=== PATIENT | male | born 1940 | race Caucasian/White ===

== ENCOUNTER → 2017-01-14 | Outpatient (CLI) | payer MEDICARE ==
--- NOTE | 2017-01-14 07:56 | CT ---
EXAMINATION TYPE: CT ankle RT wo con DATE OF EXAM: 01/14/2017 7:36 AM COMPARISON: NONE HISTORY: Right ankle pain with displaced fracture CT DLP: 235.[address] of the right ankle with reconstruction imaging. TECHNIQUE: Unenhanced CT of the right ankle was performed with bone and soft tissue window settings s ubmitted in the axial coronal and sagittal planes. FINDINGS: There is evidence of trimalleolar fracture. Medial malleolar component demonstrates displac ement of 3.8 mm. Mildly comminuted obliquely oriented lateral malleolar component is identified with displacement of approximately 2.8 mm. A comminuted displaced bony fragment measuring 3.8 mm is noted at the lateral aspect of the ankle mortise. There is mildly comminuted posterior malleolar fracture w ith displacement of 1 mm. Curvilinear ossific density is noted on sagittal image 25 of 43 at the ante rior talar dome. This may reflect additional avulsion fracture with site of origin indeterminate. The re is mild widening of the medial tibiotalar joint space measuring 5 mm. There is evidence of soft tissue edema. Plantar and dorsal calcaneal spur formation identified. No ad ditional fracture seen at this time. IMPRESSION: 1. Trimalleolar fractures as discussed. 2. Mild widening of the medial tibiotalar joint space.
== END | disposition home or self-care (01) ==
LOC: RADCTMAIN 07:12
PROVIDERS: ATTEND Orthopaedic Surgery
DX: S82.851A Displaced trimalleolar fracture of right lower leg, initial encounter for closed fracture (principal)

== ENCOUNTER 2017-01-19 13:28 | Day surgery (SDC) | payer MEDICARE ==
[2017-01-18 09:28] VITALS: BMI 29.6
[~2017-01-19 13:28] MED LIST: DEXAMETHASONE SOD PHOSPHATE 10 MG/ML 1 ML VIAL IV ONE; HYDROmorphone 1 MG/ML 1 ML SYRINGE IVP PRN; LACTATED RINGERS 1,000 ML IV SCH; LIDOCAINE 1% 20 ML VIAL (10MG/ML) FOR IV START INTRADERMA PRN; MIDAZOLAM 2 MG/2 ML VIAL IV PRN; ONDANSETRON 4 MG/2 ML VIAL IVP ONE; SCOPOLAMINE 1.5MG/72HR PATCH TRANSDERM ONE; ceFAZolin 2 GM in SODIUM CHLORIDE 0.9% 100 ML IVPB ONE
[2017-01-19] MEDS ORDERED: SUCCINYLCHOLINE CHLORIDE 100 MG/5 ML SYR IV ONE (14:50)
[2017-01-19] MEDS ORDERED: MIDAZOLAM 2 MG/2 ML VIAL ONE (14:50)
[2017-01-19] MEDS ORDERED: LIDOCAINE 1% INJ 10MG/ML (20 ML MDV) ONE (14:50)
[2017-01-19] MEDS ORDERED: PROPOFOL 10 MG/ML 20 ML VIAL IV ONE (14:50)
[2017-01-19] MEDS ORDERED: ROCURONIUM BROMIDE 10 MG/ML 10 ML VIAL IV ONE (14:50)
[2017-01-19] MEDS ORDERED: NEOSTIGMINE 1 MG/ML 10 ML VIAL ONE (14:50)
[2017-01-19] MEDS ORDERED: GLYCOPYRROLATE 0.2 MG/ML 2 ML VIAL ONE (14:50)
[2017-01-19] MEDS ORDERED: fentaNYL (PF) 50 MCG/ML 2 ML AMP ONE (14:50)
[2017-01-19] MEDS ORDERED: ceFAZolin 1,000 MG in SODIUM CHLORIDE 0.9% 1,000 ML IRRIGATION ONE (16:10)
[2017-01-19] MEDS ORDERED: LACTATED RINGERS 1,000 ML IV ONE ×2 (16:36)
--- NOTE | 2017-01-19 16:52 | FL ---
EXAMINATION TYPE: FL guidance operating room, XR ankle limited RT DATE OF EXAM: 01/19/2017 4:43 PM CLINICAL HISTORY: Right ankle trimalleolar fracture. TECHNIQUE: Fluoroscopy. Limited intraoperative views right ankle. COMPARISON: CT right ankle January 14, 2017. FINDINGS: Fluoroscopic guidance was provided during open reduction internal fixation procedure perfo rmed by Dr. Bolton. A total of 41 seconds of fluoroscopic time was utilized during the procedure a nd 8 spot intraoperative images are acquired. Saved intraoperative images show placement of fixating screws through medial malleolus or fracture. T here is lateral fixating plate with additional fixating screws through the lateral malleolus or fract ure. Satisfactory alignment is seen on intraoperative images provided. IMPRESSION: As Above.
[2017-01-19 17:16] VITALS: RESP 16; TEMP 97.6
[2017-01-19] MEDS ORDERED: HYDROcodone/APAP 5-325MG 1 EACH TAB PO PRN (17:20)
[2017-01-19] MEDS ORDERED: HYDROmorphone 1 MG/ML 1 ML SYRINGE IVP PRN (17:20)
[2017-01-19] MEDS ORDERED: ONDANSETRON 4 MG/2 ML VIAL IVP PRN (17:20)
[2017-01-19] MEDS ORDERED: ROPIVACAINE 5 MG/ML 30 ML VIAL MISCELLANE ONE (17:35)
--- NOTE | 2017-01-19 17:35 | P.OP ---
Date of Procedure: 01/19/17 Preoperative Diagnosis: Closed right trimalleolar ankle fracture Postoperative Diagnosis: Closed right trimalleolar ankle fracture Procedure(s) Performed: 1. Open reduction and internal fixation of right trimalleolar ankle fracture ( open reduction and internal fixation of lateral and medial malleolus fracture and nonoperative management of posterior malleolus fracture) 2. Manual application of joint stress by physician for radiography right ankle Anesthesia: GETA Surgeon: Oscar Bolton Estimated Blood Loss (ml): 30 IV fluids (ml): 850 Pathology: none sent Condition: stable Disposition: PACU Indications for Procedure: The patient is a very pleasant 76-year-old male who sustained an isolated injury to his right ankle 4 weeks ago while hiking in [place]. He was seen in the emergency department where closed reduction and splinting was performed. He followed up with an orthopedic surgeon in [place], but he and his decided they wanted to have surgical fixation back home in [place]. I saw the patient 3 weeks after his injury and repeat x-rays which showed a displaced trimalleolar ankle fracture. I recommended operative fixation. I obtained a computed tomography scan to assess the size of the posterior malleolus fracture. The patient was placed in a well-padded bulky Byrne type splint to help facilitate dissipation of swelling. The patient was seen a week later at which point there was wrinkling of the skin and I determined it safe to proceed with surgery. We discussed potential risks and complication of surgery including but not limited to risk of anesthesia, risk of superficial infection, risk of deep infection, risk of delayed wound healing, risk of wound necrosis, risk of fracture nonunion, risk of fracture malunion, risk of symptomatically hardware, risk of posterior medical arthritis, risk of displacement requiring surgery, risk of chronic pain, risk of chronic swelling, risk of damage to local sensory nerves resulting in temporary or permanent numbness, risk of need for hardware removal, risk of DVT, risk of PE, risk of postoperative medical complication, and possibly loss of life or limb. The patient and his understand these potential risks and complications of surgery. Description of Procedure: The patient was identified in preoperative holding and the correct right leg was marked with my initials. I reviewed the consent form with the patient and his and all their questions were answered. The patient was then brought back to the operating room. He was transferred onto the operating room table and a general anesthetic and preoperative antibiotics were administered. The patient was then positioned on the operating room table and all bony prominences well-padded. A bone foam ramp was placed under his right leg. A bone foam wedge was placed under his right buttock internally rotating the leg. A tourniquet was applied to the proximal aspect of the right thigh. A to starting surgery C-arm came in and a manual external rotation stress x-ray was taken with fluoroscopy. The right ankle showed significant widening of the medial clear space. I then took a mortise and lateral x-ray of the left ankle to use as a template for reduction showed a syndesmotic screw be needed. The patient's right leg was then prepped and draped in the standard sterile fashion. Prior to starting surgery timeout was performed identifying the correct patient, operative extremity, and procedure. The patient's leg was then elevated, exsanguinated with an Esmarch bandage, and the tourniquet was inflated to 250 mmHg. A longitudinal incision was marked out directly over the lateral aspect of the fibula centered on the fracture. Skin incision with a 15 blade scalpel and dissection was carried down carefully to the subcutaneous tissue lateral aspect the distal fibula. The fracture site was identified. There was a large amount of consolidating callus that had to be taken down. The fracture site was circumferentially exposed until it was easily reduced. Once the fracture site was debrided and ready to be reduced a a closed reduction was performed using longitudinal traction and rotation. Hfway-fs-vqtuc reduction clamps were used to hold the reduction in place. Clinically the posterior cortex of the distal fragment keyed in nicely to the proximal fragment. Clinically the fracture appeared to be reduced and nicely compressed with 2 dffcf-xa-iwkps reduction clamps. C-arm was brought in to verify the fracture was out to length and the medial clear space was reduced. A 2.7 mm lag screw was then placed from anterior to posterior across the fracture site. A 2.7 mm drill bit was used to create a gliding hole in the anterior cortex of the proximal fragment and a 2.0 mm drill bit was used to create a threaded hole in the posterior cortex the distal fragment. A fully threaded 2.7 mm screws placed generating excellent compression across the fracture. A one third tubular plate was then placed along the lateral aspect of the fibula. A 35 screws placed just proximal to the fracture site bring the plate down to the bone. I then placed a 3.5 screw in the most proximal hole of the plate. Attention was then turned distally and 2 fully threaded 3.5 mm cancellus screws were placed in the distal holes of the plate. I then placed a final screw in the second hole of the plate proximally. Attention was then turned to the medial malleolus. A longitudinal incision was made centered over the medial malleolus. Dissection was carried down carefully through subcutaneous tissue. The fracture site was identified and cleaned of consolidating hematoma. Once the fracture site was debrided a reduction was performed. A 2.5 mm drill bit was used to create a single unicortical hole in the proximal tibia. 1 funmilayo of a lzsum-md-qlbpw reduction clamp was placed and this drilled hole and the second funmilayo was placed on the tip of the medial malleolus. Reduction clamp was closed nicely reducing the medial malleolus fracture. A 0.0625 K wire was placed across the fracture fragment up into the tibia. A second 0.0625 K wire was placed anterior to the previously placed K wire. The K wire was withdrawn and a fully threaded 2.7 mm screw was placed down the track of the previously removed K wire. The retractor in second K wire removed and the fracture fragment was reduced. Due to the size of the medial malleolus anterior collicular fragment I was unable to place a second screw. At this point a manual external rotation stress x-ray was taken. There was no widening of the medial clear space or the syndesmosis. I elected not to place a syndesmotic screw due to no evidence of radiographic instability. Final mortise and lateral x-rays of the ankle were then taken. Both wounds were then copiously irrigated with sterile saline. The fascia over the distal fibula was closed with a running 2-0 Vicryl stitch. The deep subcu was reapproximated using 2-0 Vicryl. The skin was closed using 3-0 nylon Allgower modification of the Donati stitch. The fascia medially was closed with an interrupted 2-0 Vicryl stitch. The deep subcu was closed with interrupted 2-0 Vicryl. The skin was closed using 3-0 nylon Allgower modification of the Donati stitch. The tourniquet was let down for total tourniquet time of 70 minutes. Brown quarter-inch stretchy Steri-Strips were placed between the stitches. I verified that all instrument, sponge, and sharp counts were correct. A sterile dressing consisting of Betadine soaked Adaptic, 4 x 4 and web roll was applied. The drapes were then taken down and a very well -padded bulky Byrne type splint was placed. The patient was awoken from his anesthetic, transferred to the [facility] and brought to PACU having to the procedure well. Plan: The patient can discharge home tonight if he is comfortable. He is to remain strictly nonweightbearing on his right leg. If he does stay overnight he will need 2 additional doses of antibiotics and Lovenox 40 mg daily while in the hospital for DVT prophylaxis. He'll follow-up in the office in 2 weeks.
[2017-01-19 18:27] VITALS: BP 160/89; PULSE 83
== END 2017-01-19 19:08 | disposition home or self-care (01) ==
LOC: OR 13:28
PROVIDERS: ATTEND Orthopaedic Surgery
DX: S82.851A Displaced trimalleolar fracture of right lower leg, initial encounter for closed fracture (principal); I10 Essential (primary) hypertension; E78.5 Hyperlipidemia, unspecified; E03.9 Hypothyroidism, unspecified; H91.90 Unspecified hearing loss, unspecified ear; X58.XXXA Exposure to other specified factors, initial encounter; Y93.01 Activity, walking, marching and hiking; Z79.899 Other long term (current) drug therapy; Z85.46 Personal history of malignant neoplasm of prostate; Z82.49 Family history of ischemic heart disease and other diseases of the circulatory system; Z98.890 Other specified postprocedural states
CPT/HCPCS: 73600; 27822; C1713; J2250; J1100; J2710; J0690 ×2; J2405; J2001; J3010; J1170; J2795; J0330; J2704

== ENCOUNTER → 2018-05-04 | Outpatient (CLI) | payer MEDICARE ==
[2018-05-04 15:35] LABS: Blood Urea Nitrogen 15 mg/dL (9-20)
--- NOTE | 2018-05-04 21:01 | CT ---
EXAMINATION TYPE: CT pelvis wo/w con DATE OF EXAM: 05/04/2018 COMPARISON: None HISTORY: Interpelvic lymphoma. CT DLP: 1521 mGycm Automated exposure control for dose reduction was used. CONTRAST: Performed with oral and without and with IV Contrast, patient injected with 100ml mL of Isovue M300. FINDINGS: There are 2 renal calculi scattered throughout right kidney measuring up to 5 mm in size coronal seri es 9 image [address] There are 5-6 tiny calculi measuring 2 mm or smaller in size scatter ed throughout the left kidney. There is symmetric cortical medullary uptake and excretion from both k idneys without evidence of hydronephrosis bilaterally. There are few tiny subcentimeter hypodense les ions bilaterally that are too small to further characterize but presumably benign. Scattered pelvic p hlebolith are present bilaterally. Urinary bladder is felt within normal limits. Prostate gland is not visualized and presumed surgically absent. Oral contrast does not reach colonic level. There is no suspicious small or large bowel dilatation. N ormal-appearing appendix is seen from base of cecum. There is no concerning pelvic fluid collection. There is no suspicious greater than 1 cm pelvic or groin adenopathy. There is however enlarged left p eriaortic lymph node measuring 3.6 x 3.2 cm axial image 21 at lower pole level both kidneys right bef ore aortic bifurcation There is mild disc space narrowing with vacuum disc phenomenon L3-L4 and L4-L5 levels. There is moder ate disc space narrowing with vacuum disc phenomenon L5-S1 level. There is multilevel facet arthropat hy lower lumbar spine. Mild to moderate calcified plaque of the aorta extends into pelvic branch vessels. IMPRESSION: 1. ENLARGED 3.6 X 3.2 CM LEFT PARAAORTIC LYMPH NODE LIKELY REFLECTING KNOWN LYMPHOMA INVOLVEMENT. NO PELVIC OR GROIN ADENOPATHY IS SEEN. 2. INCIDENTAL BILATERAL NEPHROLITHIASIS.
== END | disposition home or self-care (01) ==
LOC: RADCTMAIN 14:47
PROVIDERS: ATTEND Internal Medicine Geriatric Medicine
DX: R59.0 Localized enlarged lymph nodes (principal); C83.5 Lymphoblastic (diffuse) lymphoma
CPT/HCPCS: 82565; 84520; 72194; 36415; Q9967

== ENCOUNTER → 2018-05-10 | Outpatient (CLI) | payer MEDICARE ==
[2018-05-10 13:17] LABS: Blood Urea Nitrogen 17 mg/dL (9-20)
--- NOTE | 2018-05-10 21:04 | CT ---
EXAMINATION TYPE: CT abdomen wo/w con DATE OF EXAM: 05/10/2018 COMPARISON: CT pelvis May 04, 2018. HISTORY: Lymphoma per order. CT DLP: 1406 mGycm, Automated Exposure Control for Dose Reduction was Utilized. CONTRAST: CT scan of the abdomen is performed with oral and without and with IV Contrast, patient injected with 100 mL of Isovue 300. FINDINGS: LUNG BASES: Calcified 5 mm nodule or granuloma lateral left lower lobe axial image 5. There is adjace nt left basilar linear scarring and/or atelectasis. There is coronary artery calcification or stent i n the RCA distribution. LIVER/GB: Adverse diffusely low dense on noncontrast study relative to spleen consistent with diffuse fatty infiltration. PANCREAS: No significant abnormality is seen. SPLEEN: No significant abnormality is seen. ADRENALS: No significant abnormality is seen. KIDNEYS: There is 6 mm calculus right kidney upper pole level axial image 36. There is additional 2 m m calculus mid to lower pole level coronal image 80. There are 4 calculi measuring 2 mm or smaller sc attered throughout the visualized left kidney on noncontrast images. Postcontrast images show symmetr ic cord especially uptake and excretion from both kidneys without hydronephrosis bilaterally. There a re subcentimeter exophytic lesion mid pole level right kidney series 7 image 43 and is too small to f urther characterize, similar lesion is seen medially upper pole level axial image 34. There are 2-3 s imilar lesions scattered throughout the left kidney as well as some small simple appearing parapelvic cyst lower pole of the left kidney. BOWEL: Oral contrast does not reach colonic level making follow-up evaluation slightly suboptimal. Th ere is small bowel feces sign and distal ileal loops consistent with delayed passage of ingested mate rial to colonic level. There is no suspicious small or large bowel dilatation. LYMPH NODES: There is redemonstration of 3.8 x 3.0 cm left periaortic mass or adenopathy right before bifurcation causing mass effect on the aorta deviated to right of midline. Mass has Hounsfield units averaging 44 on noncontrast study with Hounsfield units of 71 on postcontrast images consistent with some enhancement. A few slightly prominent upper abdominal and rodolfo hepatic lymph nodes are seen. T here are no additional abnormal greater than 1 cm lymph nodes in short axis clearly identified. OSSEOUS STRUCTURES: There is multilevel vacuum disc phenomenon with mild to moderate multilevel disc space narrowing most prominent at the lumbosacral junction. There is mild multilevel spurring in the thoracolumbar spine. There is facet arthropathy lower lumbar levels. OTHER: No significant additional abnormality is seen. IMPRESSION: Redemonstration of known left periaortic mass or probable adenopathy related to known lym phoma. No additional suspicious abnormal abdominal lymph nodes are appreciated.
== END | disposition home or self-care (01) ==
LOC: RADCTMAIN 12:38
PROVIDERS: ATTEND Internal Medicine Geriatric Medicine
DX: C83.5 Lymphoblastic (diffuse) lymphoma (principal)
CPT/HCPCS: 82565; 84520; 74170; 36415; Q9967

== ENCOUNTER 2019-05-06 22:56 | Emergency (ER) | payer MEDICARE ==
--- NOTE | 2019-05-06 23:26 | ED ---
General Adult HPI - General Chief complaint: Abdominal Pain Stated complaint: RLQ Pain Time Seen by Provider: 05/06/19 23:13 Source: patient, family Mode of arrival: ambulatory Limitations: no limitations - History of Present Illness Initial comments: Dictation was produced using [employer] dictation software. please excuse any grammatical, word or spelling errors. Chief Complaint: 79-year-old male presents with right flank pain and right lower quadrant abdominal pain. History of Present Illness: 79-year-old male. His past medical history of stage IV cancer. Is on oral chemotherapy for it. Patient reports that approximately 2 hours prior to arrival he began experiencing right flank pain versus right lower quadrant abdominal pain. Patient denies any fevers. He states that he has history of kidney stones are visible in the left side. Patient still has his appendix. No nausea or vomiting. Patient states his symptoms are persistent for approximately 2 hours and immediately improved. The ROS documented in this emergency department record has been reviewed and confirmed by me. Those systems with pertinent positive or negative responses have been documented in the HPI. All other systems are other negative and/or noncontributory. PHYSICAL EXAM: General Impression: Alert and oriented x3, not in acute distress HEENT: Normocephalic atraumatic, extra-ocular movements intact, pupils equal and reactive to light bilaterally, mucous membranes moist. Cardiovascular: Heart regular rate and rhythm, S1&S2 audible, no murmurs, rubs or gallops Chest: Lungs clear to auscultation bilaterally, no rhonchi, no wheeze, no rales Abdomen: Bowel sounds present, abdomen soft, non-tender, non-distended, no organomegaly Musculoskeletal: Pulses present and equal in all extremities, no peripheral edema Motor: no focal deficits noted Neurological: CN II-XII grossly intact, no focal motor or sensory deficits noted Skin: Intact with no visualized rashes Psych: Normal affect and mood ED course: 79-year-old male past medical history of kidney stones, prostate cancer presents with right flank and right lower quadrant abdominal pain. Vital signs upon arrival are within acceptable limits. Laboratory evaluation obtained. CBC unremarkable. Metabolic panel is unremarkable. Computed tomography scan of the abdomen and pelvis was obtained. There appears to be right hydroureter nephrosis with 2 mm stone in the right UVJ. Patient given intravenous fluids. He is also given analgesia. Patient is in stable medical condition. Patient's clinical presentation consistent with nephrolithiasis. Patient given urinary strainer. He is discharged with outpatient follow-up to urology. Interpreted as discussed. Patient clear for discharge. - Related Data Home Medications Medication Instructions Recorded Confirmed Aspirin 81 mg PO DAILY 03/12/15 05/06/19 Cholecalciferol [Vitamin D3] 2,000 mg PO DAILY 03/12/15 05/06/19 Fish Oil/Dha/Epa [Fish Oil 1,200 1 cap PO DAILY 03/12/15 05/06/19 mg Fish Oil] Lisinopril 40 mg PO HS 03/12/15 05/06/19 Atorvastatin [Lipitor] 20 mg PO HS 01/18/17 05/06/19 Carvedilol [Coreg] 3.125 mg PO BID 01/18/17 05/06/19 Montelukast [Singulair] 10 mg PO HS 01/18/17 05/06/19 amLODIPine BESYLATE [Norvasc] 5 mg PO HS 01/18/17 05/06/19 Enzalutamide [Xtandi] 160 mg PO HS 05/06/19 05/06/19 Leuprolide Acetate [Lupron Depot] 45 mg IM Q180D 05/06/19 05/06/19 Levothyroxine Sodium [Synthroid] 100 mcg PO DAILY 05/06/19 05/06/19 Allergies Allergy/AdvReac Type Severity Reaction Status Date / Time No Known Allergies Allergy Verified 05/06/19 23:33 Review of Systems ROS Statement: Those systems with pertinent positive or pertinent negative responses have been documented in the HPI. ROS Other: All systems not noted in ROS Statement are negative. 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 History of Any Multi-Drug Resistant Organisms: None Reported Past Surgical History: Heart Catheterization With Stent, Prostate Surgery Additional Past Surgical History / Comment(s): HEMMORHOIDECTOMY, UMBILICAL HERNIA, HEART CATH WITH STENT (06/09/2012), TURP AND THEN RADICAL PROSTATECTOMY. Additional Past Anesthesia/Blood Transfusion Reaction / Comment(s): STATES BP SPIKED BUT HE WAS NOT ON BP MEDS AT THE TIME. Date of Last Stent Placement:: 06/09/2012 Past Psychological History: No Psychological Hx Reported Smoking Status: Never smoker Past Alcohol Use History: Rare Past Drug Use History: None Reported - Past Family History Mother Family Medical History: No Reported History General Exam Limitations: no limitations Course Vital Signs 05/06/19 23:02 Temperature 97.6 F Pulse Rate 62 Respiratory 16 Rate Blood Pressure 173/92 O2 Sat by Pulse 97 Oximetry Medical Decision Making - Lab Data Result diagrams: 05/07/19 00:04 05/07/19 00:04 Lab Results 05/07/19 05/07/19 Range/Units 00:04 00:04 WBC 5.3 (3.8-10.6) k/uL RBC 4.43 (4.30-5.90) m/uL Hgb 13.9 (13.0-17.5) gm/dL Hct 40.3 (39.0-53.0) % MCV 90.9 (80.0-100.0) fL MCH 31.3 (25.0-35.0) pg MCHC 34.5 (31.0-37.0) g/dL RDW 12.9 (11.5-15.5) % Plt Count 225 (150-450) k/uL Neutrophils % 55 % Lymphocytes % 25 % Monocytes % 9 % Eosinophils % 7 % Basophils % 1 % Neutrophils # 2.9 (1.3-7.7) k/uL Lymphocytes # 1.3 (1.0-4.8) k/uL Monocytes # 0.5 (0-1.0) k/uL Eosinophils # 0.4 (0-0.7) k/uL Basophils # 0.1 (0-0.2) k/uL Sodium 136 L (137-145) mmol/L Potassium 4.0 (3.5-5.1) mmol/L Chloride 106 (98-107) mmol/L Carbon Dioxide 20 L (22-30) mmol/L Anion Gap 10 mmol/L BUN 18 (9-20) mg/dL Creatinine 0.89 (0.66-1.25) mg/dL Est GFR (CKD-EPI)AfAm >90 (>60 ml/min/1.73 sqM) Est GFR (CKD-EPI)NonAf 83 (>60 ml/min/1.73 sqM) Glucose 173 H (74-99) mg/dL Calcium 9.9 (8.4-10.2) mg/dL Disposition Clinical Impression: Kidney stone Disposition: HOME SELF-CARE Condition: Good Instructions (If sedation given, give patient instructions): Kidney Stones (ED) Is patient prescribed a controlled substance at d/c from ED?: No Referrals: Tulio Montaño MD [STAFF PHYSICIAN] - 1-2 days Time of Disposition: 01:18
[2019-05-07 00:16] LABS: Basophils # (A) 0.1 k/uL (0-0.2); Basophils % (A) 1 %; Eosinophils # (A) 0.4 k/uL (0-0.7); Eosinophils % (A) 7 %; HCT 40.3 % (39.0-53.0); HGB 13.9 gm/dL (13.0-17.5); Lymphocytes # (A) 1.3 k/uL (1.0-4.8); Lymphocytes % (A) 25 %; MCH 31.3 pg (25.0-35.0); MCHC 34.5 g/dL (31.0-37.0); MCV 90.9 fL (80.0-100.0); Mean Platelet Volume 8.5; Monocytes # (A) 0.5 k/uL (0-1.0); Monocytes % (A) 9 %; Neutrophils # (A) 2.9 k/uL (1.3-7.7); Neutrophils % (A) 55 %; Platelet Count 225 k/uL (150-450); RBC 4.43 m/uL (4.30-5.90); RDW 12.9 % (11.5-15.5); WBC 5.3 k/uL (3.8-10.6)
[2019-05-07 00:25] LABS: African American GFR (CKD) >90 (>60 ml/min/1.73 sqM); Anion Gap 10 mmol/L; Blood Urea Nitrogen 18 mg/dL (9-20); Calcium 9.9 mg/dL (8.4-10.2); Carbon Dioxide 20 mmol/L (22-30); Chloride 106 mmol/L (98-107); Glucose 173 mg/dL (74-99); Sodium 136 mmol/L (137-145)
[2019-05-07] MEDS ORDERED: SODIUM CHLORIDE 0.9% 1,000 ML IV STA (00:53)
--- NOTE | 2019-05-07 01:04 | CT ---
EXAM: CT Abdomen and Pelvis With Intravenous Contrast CLINICAL HISTORY: ITS.REASON CT Reason: Pain TECHNIQUE: Axial computed tomography images of the abdomen and pelvis with intravenous contrast. CTDI is 18 mGy and DLP is 570 mGy-cm. This CT exam was performed using one or more of the following dose reduction techniques: automated exposure control, adjustment of the mA and/or kV according to patient size, and/or use of iterative reconstruction technique. COMPARISON: No relevant prior studies available. FINDINGS: Lung bases: No mass. No consolidation. ABDOMEN: Liver: Enlarged with steatosis. Tiny low-density lesion, likely a cyst. Gallbladder and bile ducts: Unremarkable. Pancreas: Unremarkable. Spleen: Unremarkable. Adrenals: Unremarkable. Kidneys and ureters: Right hydronephrosis secondary to a 2 mm stone in the right UVJ. Nonobstructive stone in the right kidney. Left kidney is unremarkable. Stomach and bowel: No bowel obstruction. No bowel wall thickening. PELVIS: Appendix: No appendicitis. Bladder: Unremarkable. Reproductive: Unremarkable. ABDOMEN and PELVIS: Intraperitoneal space: Unremarkable. Bones/joints: No acute fractures. Soft tissues: Bilateral fat-containing inguinal hernias. Vasculature: No abdominal aortic aneurysm. Lymph nodes: No enlarged lymph nodes. IMPRESSION: 1. Right hydroureteronephrosis secondary to a 2 mm stone in the right UVJ. Nonobstructive stone in the right kidney. 2. Hepatomegaly with steatosis.
[2019-05-07 01:27] LABS: Appearance,Urine Clear (Clear); Bilirubin,Urine Negative (Negative); Blood,Urine Large (Negative); Color,Urine Yellow; Glucose,Urine (UA) Negative (Negative); Ketones,Urine Negative (Negative); Leukocyte Esterase,Urine Negative (Negative); Mucus,Urine Rare /hpf; Nitrite,Urine Negative (Negative); Protein,Urine Negative (Negative); RBC,Urine >182 /hpf (0-5); Specific Gravity,Urine 1.016 (1.001-1.035); Urobilinogen,Urine <2.0 mg/dL (<2.0)
[2019-05-07 02:29] VITALS: BP 157/97; PULSE 61; RESP 18; TEMP 98.4
== END 2019-05-07 02:27 | disposition home or self-care (01) ==
LOC: EC 22:56
DX: N13.2 Hydronephrosis with renal and ureteral calculous obstruction (principal); I48.91 Unspecified atrial fibrillation; I25.10 Atherosclerotic heart disease of native coronary artery without angina pectoris; I10 Essential (primary) hypertension; E78.5 Hyperlipidemia, unspecified; J44.9 Chronic obstructive pulmonary disease, unspecified; E07.9 Disorder of thyroid, unspecified; Z79.82 Long term (current) use of aspirin; Z79.02 Long term (current) use of antithrombotics/antiplatelets; Z79.890 Hormone replacement therapy; Z79.899 Other long term (current) drug therapy; Z95.5 Presence of coronary angioplasty implant and graft; Z85.46 Personal history of malignant neoplasm of prostate; Z85.828 Personal history of other malignant neoplasm of skin
CPT/HCPCS: 36415; 80048; 85025; 81001; 74177; 99284; 96360; Q9967

== ENCOUNTER → 2021-10-26 | Outpatient (CLI) | payer MEDICARE ==
[2021-10-26 08:47] VITALS: BP 174/88; PULSE 65; RESP 18; TEMP 98
--- NOTE | 2021-10-26 09:19 | P.CON ---
Consult Note - . Consult date: 10/26/21 Assessment/Plan:: HISTORY OF PRESENT ILLNESS: 81 yr old male with a history of lumbar degenerative disc disease, disc protrusions, facet arthropathy presents today for lumbar pain and RLE pain. States his pain level is 5 /10, dull & achy in the right side of his lumbar spine and radiates towards his right groin and right foot in a sharp, shooting character. States he's had this pain on & off for years. He is currently undergoing treatment for prostate cancer and will be on prednisone intermittently while taking a chemotherapeutic agent once every 3 weeks. It is exacerbated with sitting and relieved with Naproxen, heat, physical therapy for 4 weeks and rest. Past Medical History: Atrial Fibrillation, Coronary Artery Disease (CAD), Cancer, Hyperlipidemia, Hypertension, Thyroid Disorder, DM Additional Past Medical History / Comment(s): constipation History of Any Multi-Drug Resistant Organisms: None Reported Past Surgical History: Heart Catheterization With Stent, Prostate Surgery Additional Past Surgical History / Comment(s): hemorroids Past Psychological History: No Psychological Hx Reported Smoking Status: Never smoker Past Alcohol Use History: None Reported Past Drug Use History: None Reported REVIEW OF ORGAN SYSTEMS: CONSTITUTIONAL: No fevers or chills. No recent weight loss. HEENT: No visual acuity loss, eye pain, difficulties with hearing. No nosebleeds. No difficulty swallowing. RESPIRATORY: Denies any troubles with breathing or dyspnea on exertion. CARDIOVASCULAR: Denies any chest pain, palpitations, or recent heart attacks. GASTROINTESTINAL: Denies fatty food intolerance. Has change in bowel habits and gas bloat. GENITOURINARY: Denies any blood in urine. Has increased urinary frequency. NEUROLOGICAL: + numbness and tingling along the distal extremities. No seizure disorders or headaches. MUSCULOSKELETAL: + back pain SKIN: No skin cancer. No rash. PSYCHIATRIC: Denies current depression or suicidal thoughts. ENDOCRINE: Denies current thyroid disorders. Denies any blood sugar glucose intolerance. HEME/LYMPHATIC: Denies any lumps and bumps around the neck. History of deep venous thrombosis. ALLERGY/IMMUNOLOGY: No immunoglobulin therapy. No immune deficiencies. BREAST: Denies current breast lumps, pain or nipple discharge. Physical Examinations : Constitutional : Cooperative , not in acute distress . HEENT: Neck supple. No Lymphadenopathy. Normal thyroid size . Eyes no ptosis , no icterus, no photophobia . Hearing intact. Normal oropharynx. No Thrush. Respiratory : Chest clear to auscultations bilaterally. No wheezing. No rhonchi. Cardiovascular : Regular rate and rhythm , S1 / S2. No S3 . No S4. Gastrointestinal : Abdomen soft. No tenderness. Bowel sounds x 4. No organomegaly . Genitourinary : Deferred. Neurologic : Cranial nerve II to XII intact. No focal neurological deficits. Psychiatric : alert & oriented x 3. Matching mood & appropriate affect. Judgment & insight intact. Lymphatic No Lymphadenopathy. Musculoskeletal : Cervical Spine Motor strength in the deltoid and biceps: Normal right side. Normal Left side Motor strength biceps and the wrist extensors: Normal right side . Normal left side Motor strength in the triceps muscle: Normal right side. Normal left side Deep tendon reflexes: Normal at the bi ceps. Normal at Brachioradialis. Normal at triceps Cervical facet loading test: positive bilaterally Spurling test: positive bilaterally Neck distraction test: positive bilaterally Yancy sign: positive bilaterally Lumbar spine Motor strength lower extremities ,thigh and legs 5/5 Right side , 5/5 Left side Deep tendon reflexes : Normal Knee Jerk. Normal Ankle Jerk Lumbar facet Loading Test: positive Right / positive Left Range of motion of the lumbar spine Flexion <45 degrees, extension 10 degrees Straight Leg Raise test: Left/ Right positive at 30 degrees Delfin test: positive right / positive left. Severe tenderness over the Sacroiliac joint on the Right / Left sides Gaenslen test: positive right Seated flexion test: positive bilaterally. IMAGING MRI Lumbar 05/20/2021 L2-L3 mild protrusion, annular fissure, disc abuts R L2 with Schmorl's node; L3- L4 broad based disc protrusion with bilateral neuroforaminal stenoses, L4-L5 broad based dsic protrusion with bilateral neuroforaminal stenoses and left L4 compression; L5-S1 broad based disc protrusion, bilateral neuroforaminal stenoses, right L5 compression and abutment of the bilateral S1 Assessment/ Plan : Recommendation of LESI of L4-L5 Risks/ benefits of procedure discussed, including elevating blood sugar, impaired wound healing and lower immunity and pt verbalized understanding Pt would benefit from R L4-L5/ L5-S1 MBB but will examine the benefits of LESI in light that pt is receiving chemotherapy/ prednisone treatments in the interim Pt will follow up with his oncologist on 11/19/2021 to start chemotherapy Discontinue aspirin 5 days prior to procedure I have spent greater than 50 minutes on patient care today. Dr Ndiaye was available by phone for the evaluation of this patient. The time was used to review the medical records including relevant urine studies and Prescription history (MAPs), review of the available imaging, evaluation and examination of the patient, coordination of care with the medical staff and if applicable referring physicians, as well as creation of the medical record
== END ==
LOC: PNWHC3 07:57
PROVIDERS: ATTEND Physician Assistant Medical
DX: M51.36 Other intervertebral disc degeneration, lumbar region (principal); M51.26 Other intervertebral disc displacement, lumbar region; I48.91 Unspecified atrial fibrillation; I25.10 Atherosclerotic heart disease of native coronary artery without angina pectoris; E78.5 Hyperlipidemia, unspecified; I10 Essential (primary) hypertension; E11.9 Type 2 diabetes mellitus without complications
CPT/HCPCS: 99211

== ENCOUNTER 2021-11-24 09:04 | Day surgery (SDC) | payer MEDICARE ==
[2021-11-23 12:04] VITALS: BMI 29.7
[~2021-11-24 09:04] MED LIST changes: -DEXAMETHASONE SOD PHOSPHATE 10 MG/ML 1 ML VIAL IV ONE; -HYDROmorphone 1 MG/ML 1 ML SYRINGE IVP PRN; -LIDOCAINE 1% 20 ML VIAL (10MG/ML) FOR IV START INTRADERMA PRN; -MIDAZOLAM 2 MG/2 ML VIAL IV PRN; -ONDANSETRON 4 MG/2 ML VIAL IVP ONE; -SCOPOLAMINE 1.5MG/72HR PATCH TRANSDERM ONE; -ceFAZolin 2 GM in SODIUM CHLORIDE 0.9% 100 ML IVPB ONE
[2021-11-24 09:33] VITALS: RESP 16; TEMP 97.3
[2021-11-24] MEDS ORDERED: IOPAMIDOL M200 10 ML VIAL ONE (09:43)
[2021-11-24] MEDS ORDERED: methylPREDNISolone ACETATE 40 MG/ML 1 ML VIAL ONE (09:43)
[2021-11-24] MEDS ORDERED: fentaNYL (PF) 50 MCG/ML 2 ML AMP ONE (09:43)
[2021-11-24] MEDS ORDERED: MIDAZOLAM 2 MG/2 ML VIAL ONE (09:43)
--- NOTE | 2021-11-24 09:57 | P.PCN ---
Date of Procedure: 11/24/21 Procedure(s) Performed: PREOPERATIVE DIAGNOSIS: 1- Lumbar Degenerative Disc Diseases 2-Lumbar foraminal stenosis POSTOPERATIVE DIAGNOSIS: Same as preop diagnosis. PROCEDURE 1. Lumbar epidural steroid injection under fluoroscopic guidance at the L4-5 level. (Fluoroscopy imaging was available in radiology department) 2. Lumbar epidurogram. ANESTHESIA: Local with 1% lidocaine 3 ml and , moderate sedation with intravenous Versed 1 mg ,and fentanyle 50 Mcg EBL: Minimal PROCEDURE INDICATION: The patient with low back pain and radiculitis symptoms unresponsive to conservative treatment. Fluoroscopy was used to optimize visualization of the needle placement and to maximize safety. PROCEDURE DESCRIPTION / TECHNIQUE: The patient was seen and identified in the preoperative area. Risks, benefits, complications including but not limited to infections ,bleeding ,allergic reaction to the medications ,nerve damage and not complete pain releife , and alternatives were discussed with the patient. The patient agreed to proceed with the procedure and signed the consent. IV was started, and vital signs were stable. Patient was taken to the OR and time out was completed. The patient was placed in the prone position on procedure table and a pillow was placed under the abdomen to reduce lumbar lordosis. The lumbosacral area was prepped and draped in the usual sterile fashion.ere closely monitored during the procedure. Conscious sedation was used during the procedure to decrease patients anxiety. Vital signs was monitered during the entire procedure. Using anterior-posterior fluoroscopy, the L4-5 interlaminar space was identified and the skin over this site was marked and then infiltrated with 1% lidocaine subcutaneously. Subsequently, a 20-gauge Tuohy epidural needle was inserted and advanced toward the epidural space using the ``Loss of resistance technique and guided by AP and lateral fluoroscopy. The correct needle position in the epidural space was verified with the injection of 2 mL of the water soluble contrast dye Isovue 200 contrast and observing an excellent epidurogram with the epidural spread of the dye, after negative aspiration for blood and CSF and in the absence of paresthesias. Again after negative aspiration, a 6 ml mixture containing 40 mg of Depo-medrol , and 2 ml of preservative free Normal Saline, and 2 ml of preservative free lidocaine 1% solution was injected and a washout of epidurogram was seen. Needle was withdrawn intact, skin was cleansed, and bandages were applied. COMPLICATIONS: None DISPOSITION / PLANS: The patient was placed in a supine position and transferred to the recovery area in a stable condition for observation. There was no evidence of lower extremity motor or sensory deficit after the procedure. Patient was discharged from the recovery room after meeting discharge criteria. Home discharge instructions were given to the patient by the staff. The patient was reexamined prior to discharge. The patient will schedule a follow up in the clinic in 2-4 weeks.
[2021-11-24] MEDS ORDERED: IV FLUID CONTINUATION 1,000 ML IV ONE (10:02)
[2021-11-24 10:20] VITALS: BP 168/83; PULSE 65
--- NOTE | 2021-11-24 11:48 | FL ---
Fluoroscopy HISTORY: Pain 1 seconds fluoroscopy time supplied to the referring clinician. 1 intraoperative C-arm images docume nt the procedure. See dictated report from anesthesia.
== END 2021-11-24 10:40 | disposition home or self-care (01) ==
LOC: ORPAIN 09:04
PROVIDERS: ATTEND Specialist
DX: M48.061 Spinal stenosis, lumbar region without neurogenic claudication (principal); M51.16 Intervertebral disc disorders with radiculopathy, lumbar region; E11.9 Type 2 diabetes mellitus without complications; Z79.82 Long term (current) use of aspirin; Z79.52 Long term (current) use of systemic steroids
CPT/HCPCS: 62323; J2250; J1030; J3010; Q9966

== ENCOUNTER → 2021-12-03 | Outpatient (CLI) | payer MEDICARE ==
[2021-12-03 13:02] VITALS: BP 144/75; PULSE 80; RESP 18; TEMP 97.8
--- NOTE | 2021-12-03 13:10 | P.PN ---
Subjective Progress Note Date: 12/03/21 Principal diagnosis: A 81 yr old male with a history of severe and chronic low back pain secondary to lumbar degenerative disc diseases and lumbar spondylosis with facet arthropathy presents today for evaluation status post LESI L4-L5 #1. Patient states he expressively percent pain relief after the procedure. Pain level is currently at 2 out of 10 in intensity, constant, dull, achy in the lower aspects of the lumbar spine with radiation of pain to the posterior aspects of the hips bilaterally. Pain escalates as high as 6 out of 10 in intensity when walking. Pain is alleviated with medications, injections, heat, physical therapy in September 2021, chiropractic treatments in the past, home exercise stretching, use of a tilt table at home, repositioning and rest. One modifying factors patient is currently in the process of receiving chemotherapy. Interventional pain procedures completed include LESI L4-L5 Patient is currently on naproxen from Dr. Mederos Patient denies any side effects of the medication(s), denies excessive drowsiness or sleepiness, denies suicidal ideation and reports that the current pain medication is helping to control the pain and improve activities of daily living. Patient denies any motor or sensory deficits. Patient denies any fever or night sweats, denies any change in the bowel movements or urination. Physical Examination: -Constitutional: Cooperative. Not in acute distress . -HEENT: Neck is supple. No lymphadenopathy. No thyromegaly. Normal thyroid size. Eyes: No ptosis , no icterus, no photophobia. ENT: No auditory deficits. Normal oropharynx. No Thrush. - Respiratory: Chest clear to auscultations bilaterally. No wheezing. No rhonchi. - Cardiovascular: Regular rate and rhythm. S1 / S2 , no S3 , no S4. - Gastrointestinal: Abdomen soft no tenderness. Bowel sounds positive in all four quadrants. No organomegaly. - Genitourinary: Deferred. - Neurologic: Cranial nerve II to XII intact. No focal neurological deficits. - Psychatric: Alert & oriented x 3. Matching mood & appropriate affect. Judgment and insight intact. - Lymphatic: No Lymphadenopathy. - Musculoskeletal: Cervical spine: Muscle bulk/ tone/ strength in the bilateral upper extremities normal. Facet loading test cervical area positive. Lumbar spine: Motor bulk/ tone/ strength lower extremities , thigh and legs : 5/5 Deep tendon reflexes : Normal Knee Jerk. Normal Ankle Jerk . Vertebral body tenderness to palpation over L4 Lumbar Facet Loading Test positive Straight Leg Raise: positive at 30 degrees right side/ left side Gaenslen's Test positive Sacral spine : Severe tenderness over the Sacroiliac joint: right side / left side Range of motion: Flexion of the lumbar spine <60 degrees Range of motion: Extension of the lumbar spine <20 degrees Gaenslen's Test positive Delfin test: positive right side / left side Assessment and plan: Chronic low back pain secondary to lumbar degenerative disc disease , lumbar spondylosis with facet arthropathy without myelopathy Admits to substantial pain relief status post procedure. May return to our office after completion of chemotherapy if necessary to explore additional pain management treatment options. All patient questions answered MAPS reviewed and it was appropriate. I have spent 31 minutes on patient care today. Dr Ndiaye was available by phone for the evaluation of this patient. The time was used to review the medical records including relevant urine studies and Prescription history (MAPs), review of the available imaging, evaluation and examination of the patient, coordination of care with the medical staff and if applicable referring physicians, as well as creation of the medical record Objective - Vital Signs Vital signs: Vital Signs Temp 97.8 F 12/03/21 12:40 Pulse 80 12/03/21 12:40 Resp 18 12/03/21 12:40 BP 144/75 12/03/21 12:40 Pulse Ox 97 12/03/21 12:40 Intake & Output 12/02/21 12/03/21 12/03/21 18:59 06:59 18:59 Weight 86.183 kg PQRS Measure Charge Sheet Mode of Arrival: Ambulatory - Pain Location Lower Back Non-Pharmacological Interventions: Chiropractic Treatment, Heat, Home Exercise, Inactivity, Physical Therapy, Stretching Pharmacological Interventions: Epidural, PRN Medication PQRS Narrative: Smoking Status Never smoker Blood Pressure 144/75 Pain Intensity [Lower Back] 2 Scale Used Numeric (1 - 10) Hx Alcohol Use (MH) No Home Medications: Ambulatory Orders Cholecalciferol [Vitamin D3] 50 mcg PO DAILY 03/12/15 Fish Oil/Dha/Epa [Fish Oil 1,200 mg Fish Oil] 1,200 mg PO DAILY 03/12/15 Atorvastatin [Lipitor] 20 mg PO HS 01/18/17 Montelukast [Singulair] 10 mg PO HS 01/18/17 amLODIPine BESYLATE [Norvasc] 5 mg PO HS 01/18/17 carvediloL [Coreg] 3.125 mg PO BID 01/18/17 Levothyroxine Sodium [Synthroid] 100 mcg PO DAILY 05/06/19 Leuprolide Acetate [Eligard] 45 mg SQ Q180D 10/19/21 Naproxen 500 mg PO BID PRN 10/19/21 Valsartan [Diovan] 40 mg PO DAILY 10/19/21 metFORMIN HCL [metFORMIN HCL ER Osmotic] 1,000 mg PO BID 10/19/21 Aspirin [Adult Low Dose Aspirin EC] 81 mg PO DAILY 11/23/21 Zytiga (Unknown Dose) 4 tab PO DAILY 11/23/21 predniSONE 5 mg PO BID 11/23/21
== END ==
LOC: PNWHC3 12:26
PROVIDERS: ATTEND Physician Assistant Medical
DX: G89.29 Other chronic pain (principal); M51.36 Other intervertebral disc degeneration, lumbar region; M47.816 Spondylosis without myelopathy or radiculopathy, lumbar region
CPT/HCPCS: 99211

== ENCOUNTER → 2022-02-01 | Outpatient (CLI) | payer MEDICARE ==
[2022-02-01 08:23] VITALS: BP 177/88; PULSE 69; RESP 18
--- NOTE | 2022-02-01 08:43 | P.PN ---
Subjective Progress Note Date: 02/01/22 Principal diagnosis: A 81 yr old male with a history of severe and chronic low back pain secondary to lumbar degenerative disc diseases and lumbar spondylosis with facet arthropathy presents today for evaluation status post LESI L4-L5 #1. He states he experienced 90% pain relief for 2 weeks status post procedure, but pain commenced after he had radiation therapy and his hip. Pain level is currently at 7 out of 10 in intensity, sharp, achy in the lower aspects of his lumbar spine with radiation of pain to the posterior aspects of his thighs and lateral aspects of his calves. Pain is provoked by standing for periods of 30 minutes, bending or lifting. Pain is alleviated with medications, injections, heat, physical therapy in the past, chiropractic she was the past, daily home exercise regimen, use of a cane for ambulation, massage therapy to integrated with physical therapy and rest. Interventional pain procedures completed include RONNIE L4-L5 #1 Patient is currently on [place] from Dr. Wu. Naproxen from Dr. Mederos. Patient denies any side effects of the medication(s), denies excessive drowsiness or sleepiness, denies suicidal ideation and reports that the current pain medication is helping to control the pain and improve activities of daily living. Patient denies any motor or sensory deficits. Patient denies any fever or night sweats, denies any change in the bowel movements or urination. Physical Examination: -Constitutional: Cooperative. Not in acute distress . -HEENT: Neck is supple. No lymphadenopathy. No thyromegaly. Normal thyroid size. Eyes: No ptosis , no icterus, no photophobia. ENT: No auditory deficits. Normal oropharynx. No Thrush. - Respiratory: Chest clear to auscultations bilaterally. No wheezing. No rhonchi. - Cardiovascular: Regular rate and rhythm. S1 / S2 , no S3 , no S4. - Gastrointestinal: Abdomen soft no tenderness. Bowel sounds positive in all four quadrants. No organomegaly. - Genitourinary: Deferred. - Neurologic: Cranial nerve II to XII intact. No focal neurological deficits. - Psychatric: Alert & oriented x 3. Matching mood & appropriate affect. Judgment and insight intact. - Lymphatic: No Lymphadenopathy. - Musculoskeletal: Cervical spine: Muscle bulk/ tone/ strength in the bilateral upper extremities normal. Facet loading test cervical area positive. Lumbar spine: Motor bulk/ tone/ strength lower extremities , thigh and legs : 5/5 Deep tendon reflexes : Normal Knee Jerk. Normal Ankle Jerk . Vertebral body tenderness to palpation over L4 Lumbar Facet Loading Test positive Straight Leg Raise: positive at 30 degrees right side/ left side Gaenslen's Test positive Sacral spine : Severe tenderness over the Sacroiliac joint: right side / left side Range of motion: Flexion of the lumbar spine <60 degrees Range of motion: Extension of the lumbar spine <20 degrees Gaenslen's Test positive Delfin test: positive right side / left side Assessment and plan: Chronic low back pain secondary to lumbar degenerative disc disease , lumbar spondylosis with facet arthropathy without myelopathy Recommendation of LESI L4-L5 #2. Risks, benefits of procedure discussed and patient verbalized understanding. Admits to ASA 81mg daily and medical history of diabetes. Protocol for discontinuation/ continuation of medications dilia procedure discussed. All patient questions answered MAPS reviewed and it was appropriate. I have spent 31 minutes on patient care today. Dr Ndiaye was available by phone for the evaluation of this patient. The time was used to review the medical records including relevant urine studies and Prescription history (MAPs), review of the available imaging, evaluation and examination of the patient, coordination of care with the medical staff and if applicable referring physicians, as well as creation of the medical record Objective - Vital Signs Vital signs: Vital Signs Temp Pulse 69 02/01/22 08:16 Resp 18 02/01/22 08:16 BP 177/88 02/01/22 08:16 Pulse Ox 96 02/01/22 08:16 Intake & Output 01/31/22 02/01/22 02/01/22 18:59 06:59 18:59 Weight 88.451 kg PQRS Measure Charge Sheet Mode of Arrival: Ambulatory - Pain Location Lower Back Non-Pharmacological Interventions: Chiropractic Treatment, Exercise, Heat, Home Exercise, Massage, Physical Therapy, Position/Reposition, Stretching Pharmacological Interventions: Epidural, PRN Medication PQRS Narrative: Smoking Status Never smoker Blood Pressure 177/88 Pain Intensity [Lower Back] 7 Scale Used Numeric (1 - 10) Hx Alcohol Use (MH) No Home Medications: Ambulatory Orders Cholecalciferol [Vitamin D3] 50 mcg PO DAILY 03/12/15 Fish Oil/Dha/Epa [Fish Oil 1,200 mg Fish Oil] 1,200 mg PO DAILY 03/12/15 Atorvastatin [Lipitor] 20 mg PO HS 01/18/17 Montelukast [Singulair] 10 mg PO HS 01/18/17 amLODIPine BESYLATE [Norvasc] 5 mg PO HS 01/18/17 carvediloL [Coreg] 3.125 mg PO BID 01/18/17 Levothyroxine Sodium [Synthroid] 100 mcg PO DAILY 05/06/19 Leuprolide Acetate [Eligard] 45 mg SQ Q180D 10/19/21 Naproxen 500 mg PO BID PRN 10/19/21 Valsartan [Diovan] 40 mg PO DAILY 10/19/21 metFORMIN HCL [metFORMIN HCL ER Osmotic] 1,000 mg PO BID 10/19/21 Aspirin [Adult Low Dose Aspirin EC] 81 mg PO DAILY 11/23/21 Zytiga (Unknown Dose) 4 tab PO DAILY 11/23/21 predniSONE 5 mg PO BID 11/23/21
== END ==
LOC: PNWHC3 07:58
PROVIDERS: ATTEND Specialist
DX: M51.36 Other intervertebral disc degeneration, lumbar region (principal); M47.816 Spondylosis without myelopathy or radiculopathy, lumbar region; G89.29 Other chronic pain; E11.9 Type 2 diabetes mellitus without complications; Z79.84 Long term (current) use of oral hypoglycemic drugs
CPT/HCPCS: 99211

== ENCOUNTER → 2022-02-12 | Outpatient (CLI) | payer MEDICARE ==
[2022-02-12 10:02] LABS: African American GFR (CKD) >90 (>60 ml/min/1.73 sqM); Blood Urea Nitrogen 30 mg/dL (9-20); Non-African American GFR(CKD) 87 (>60 ml/min/1.73 sqM)
--- NOTE | 2022-02-12 11:59 | CT ---
EXAMINATION TYPE: CT ChestAbdPelvis w con DATE OF EXAM: 02/12/2022 COMPARISON: 05/07/2019 HISTORY: Prostate Cancer CT DLP: 993.20 mGycm CONTRAST: CT scan of the chest, abdomen and pelvis is performed with Oral Contrast and with IV Contrast, patien t injected with 100 ml mL of Isovue 300. CT Chest: LUNGS: The lungs are clear and free of infiltrate or atelectasis. No pulmonary nodule or mass is det ected. Calcified granuloma left upper lobe. Additional granuloma adjacent to the lingula. No pleural effusion or CT evidence of interstitial lung disease. MEDIASTINUM: Thoracic aorta is of normal caliber. The heart is not enlarged. No evidence for media stinal mass or adenopathy. HILAR STRUCTURES: No evidence for mass. No hilar adenopathy is appreciated. OTHER: No significant abnormality. CONTRAST CT ABDOMEN AND PELVIS FINDINGS: LIVER/GB: Hepatic steatosis. No calcified gallstones. No space occupying hepatic lesion. Biliary tr ee is of normal caliber. PANCREAS: No inflammation. No distinct mass. SPLEEN: No splenic enlargement. No lesion seen. ADRENALS: No nodule. No thickening. KIDNEYS/BLADDER: No hydronephrosis. 7.8 cm right renal calculus. 3 mm nonobstructing calculus lower pole left kidney. No additional calculi seen. Cortical cyst midpole right kidney measuring 1 cm. No s olid lesions noted. BOWEL: Normal appendix. Normal bowel caliber. No inflammation. GENITAL ORGANS: Diminutive prostate. LYMPH NODES: No greater than 1cm abdominal or pelvic lymph nodes are appreciated. AORTA: No significant abnormality. OSSEOUS STRUCTURES: Scattered degenerative changes noted. OTHER: No significant additional abnormality is seen. IMPRESSION: 1. No CT evidence to suggest metastatic disease. 2. Nonobstructing nephrolithiasis. 3. Hepatic steatosis. 4. Evidence of remote granulomatous disease.
--- NOTE | 2022-02-12 14:35 | NM ---
EXAMINATION TYPE: NM bone scan whole body DATE OF EXAM: 02/12/2022 COMPARISON: CT scan 02/12/2022 HISTORY: prostate ca Delayed whole-body scanning was performed following the injection of 22.2 mCi Tc 99m MDP. Images acq uired 3 hours post injection. FINDINGS: Intense abnormal uptake in the region of the upper cervical spine. Intense abnormal uptake left clavicle. Intense abnormal uptake involving the anterior margin of the upper right rib cage and anterior latera l margin of the mid to lower right rib cage. Intense abnormal uptake posterior left-sided rib. Intense abnormal uptake involving the right acetabulum. IMPRESSION: 1. Multiple areas of abnormal uptake concordant with CT findings and compatible with metastasis.
== END | disposition home or self-care (01) ==
LOC: RADNMMAIN 09:05
PROVIDERS: ATTEND Internal Medicine Hematology & Oncology
DX: C61 Malignant neoplasm of prostate (principal); N20.0 Calculus of kidney; K76.0 Fatty (change of) liver, not elsewhere classified; D71 Functional disorders of polymorphonuclear neutrophils
CPT/HCPCS: 82565; 84520; 71260; 74177; 36415; 78306; A9503; Q9967

== ENCOUNTER → 2022-04-14 | Outpatient (CLI) | payer MEDICARE ==
--- NOTE | 2022-04-15 07:17 | BD ---
EXAMINATION TYPE: Axial Bone Density DATE OF EXAM: 04/14/2022 COMPARISON: NONE CLINICAL HISTORY: 81 years year old Male. ICD-10 CODE: C61 Prostate ca Height: 5 FT 5 IN Weight: 178 FRAX RISK QUESTIONS: Alcohol (3 or more units per day): NO Family History (Parent hip fracture): NO Glucocorticoids (More than 3mos): CURRENTLY TAKING 2 MONTHS SO FAR (Ex: prednisone, prednisolone, methylprednisolone, dexamethasone, and hydrocortisone). History of Fracture in Adulthood: YES Secondary Osteoporosis: 1. Type 1 Diabetes: TYPE 2 2. Hyperthyroidism: NO 3. Menopause before 45: NA 4. Malnutrition: NO 5. Chronic liver disease: NO Rheumatoid Arthritis: NO Current Tobacco Use: NO RISK FACTORS HISTORY OF: Surgery to Spine/Hip(right/left)/Wrist (right/left): NO Family History of Osteoporosis: NO Active: MODERATELY Diet low in dairy products/other sources of calcium: NO Lost more than 2 inches in height since high school: YES Frequent falls: NO Poor Health: GOOD Hyperparathyroidism: NO Adrenal Insufficiency: NO MEDICATIONS: Prednisone or other steroids: PREDNISONE How Lon MONTHS Thyroid Medications: YES Which medication: LEVOTHYROXINE How Lon PLUS YEARS Additional Medications: PREDNISONE, LEVOTHYROXINE, REPAGLINIDE,CARVEDILOL, VALSARTAN,AMLODIPINE, JT RVASTATIN,ASPIRIN, ELIGARD,METFORMIN, Additional History: PROSTATE CANCER RADIATION AND CHEMO RECENT METS TO THE BONES EXAM MEASUREMENTS: Bone mineral densitometry was performed using the [employer] System. Bone mineral density as measured about the Lumbar spine is: ----- L1-L4(G/cm2): 1.325 T Score Values are as follows: ----- L1: -0.2 ----- L2: 0.1 ----- L3: 1.9 ----- L4: 2.4 ----- L1-L4: 1.2 BASELINE Bone mineral density about the R hip (g/cm2): 0.926 Bone mineral density about the L hip (g/cm2): 0.915 T Score values are as follows: -----R Neck: -0.8 -----L Neck: -0.9 -----R Total: -0.2 -----L Total: 0.1 BASELINE FRAX%s: The graph provided illustrates a 6.8 % chance for a major osteoporotic fx and a 2.2 % chance for the hips probability for fx in 10 years time. IMPRESSION: Normal (Values between +1 and -1 indicate normal bone mass). Consider repeating this study in 5 year s or sooner if there is some new clinical indication. NOTE: T-SCORE=SD OF THE YOUNG ADULT MEAN.
== END | disposition home or self-care (01) ==
LOC: RADBDWWP 14:08
PROVIDERS: ATTEND Internal Medicine Hematology & Oncology
DX: C61 Malignant neoplasm of prostate (principal)
CPT/HCPCS: 77080

== ENCOUNTER 2022-04-24 20:58 | Emergency (ER) | payer MEDICARE ==
[2022-04-24 21:32] VITALS: BP 156/64; PULSE 76; RESP 16; TEMP 98.5
[2022-04-24 22:15] LABS: Appearance,Urine Clear (Clear); Bilirubin,Urine Negative (Negative); Blood,Urine Trace (Negative); Color,Urine Light Yellow; Glucose,Urine (UA) Negative (Negative); Ketones,Urine Negative (Negative); Leukocyte Esterase,Urine Negative (Negative); Mucus,Urine Rare /hpf; Nitrite,Urine Negative (Negative); Protein,Urine Trace (Negative); RBC,Urine 5 /hpf (0-5); Specific Gravity,Urine 1.017 (1.001-1.035); Urobilinogen,Urine <2.0 mg/dL (<2.0); WBC,Urine 1 /hpf (0-5)
[2022-04-24 22:25] LABS: Calcium 9.9 mg/dL (8.4-10.2); Potassium 4.3 mmol/L (3.5-5.1)
--- NOTE | 2022-04-25 01:43 | CT ---
EXAMINATION TYPE: CT abdomen pelvis wo con DATE OF EXAM: 04/25/2022 COMPARISON: 02/12/2022 HISTORY: pain CT DLP: 659.6 mGycm Automated exposure control for dose reduction was used. Images obtained from the diaphragm to the floor the pelvis with no contrast. There is mild subsegmental atelectasis at the lung bases. Heart size is normal. No pericardial effusi on. Liver spleen and stomach pancreas appear intact. The bile ducts are not dilated. Gallbladder appe ars intact. There is no adrenal mass. There is right-sided hydronephrosis and perinephric edema. There is hydroureter and 2 mm calculus at the right ureterovesical junction. There is also 2 mm calculus in the dependent urinary bladder. Ther e is 1 cm calculus upper pole right kidney. No retroperitoneal adenopathy. There are several small ca lculi in the left kidney. No left-sided hydronephrosis. No inguinal hernia. No free fluid in the pelvis. There is no mesenteric edema. No ascites or free air. No bowel obstruction. Appendix appears normal. Lumbar spine shows vacuum discs from L3 to S1. No compression fracture. The bony pelvis is intact. Th e hip joints are intact. IMPRESSION: Small obstructing calculus at the right ureterovesical junction with hydronephrosis and perinephric e matt and hydroureter. Multiple bilateral renal calculi. Obstruction appears new compared to old exam. Normal appendix. Smal l bladder calculus.
[2022-04-25 01:54] LABS: Anisocytosis Slight; Basophils # (A) 0.1 k/uL (0-0.2); Basophils % (A) 0 %; Eosinophils % (A) 0 %; HGB 11.2 gm/dL (13.0-17.5); Hypochromasia Slight; Lymphocytes # (A) 1.4 k/uL (1.0-4.8); Lymphocytes % (A) 6 %; MCH 30.8 pg (25.0-35.0); MCHC 32.1 g/dL (31.0-37.0); MCV 95.8 fL (80.0-100.0); Mean Platelet Volume 9.6; Monocytes # (A) 0.8 k/uL (0-1.0); Monocytes % (A) 3 %; Neutrophils # (A) 21.9 k/uL (1.3-7.7); Neutrophils % (A) 90 %; Platelet Count 173 k/uL (150-450); RBC 3.65 m/uL (4.30-5.90); RDW 16.4 % (11.5-15.5); WBC 24.5 k/uL (3.8-10.6)
[2022-04-25] MEDS ORDERED: TAMSULOSIN 0.4 MG CAP.ER.24H PO STA (02:34)
--- NOTE | 2022-04-25 02:39 | ED ---
General Adult HPI - General Chief complaint: Abdominal Pain Stated complaint: Abd pain Time Seen by Provider: 04/25/22 00:09 Source: patient, RN notes reviewed Mode of arrival: ambulatory Limitations: no limitations - History of Present Illness Initial comments: This is an 82-year-old male who presents to the emergency Department with complaints of right flank pain that radiates to the right lower abdomen and groin, onset this evening. Patient states this discomfort is similar to previous episode of kidney stone and was accompanied by mild nausea and some dysuria. He did take a Percocet from an old prescription prior to arrival. Reports pain resolved while waiting and is resting comfortably at this time. Denies fever, chills, headache, chest pain, shortness of breath, vomiting, diarrhea, urine retention or hematuria. He is currently undergoing chemo for prostate cancer. - Related Data Home Medications Medication Instructions Recorded Confirmed Cholecalciferol [Vitamin D3] 50 mcg PO DAILY 03/12/15 02/01/22 Fish Oil/Dha/Epa [Fish Oil 1,200 1,200 mg PO DAILY 03/12/15 02/01/22 mg Fish Oil] Atorvastatin [Lipitor] 20 mg PO HS 01/18/17 02/01/22 Montelukast [Singulair] 10 mg PO HS 01/18/17 02/01/22 amLODIPine BESYLATE [Norvasc] 5 mg PO HS 01/18/17 02/01/22 carvediloL [Coreg] 3.125 mg PO BID 01/18/17 02/01/22 Levothyroxine Sodium [Synthroid] 100 mcg PO DAILY 05/06/19 02/01/22 Leuprolide Acetate [Eligard] 45 mg SQ Q180D 10/19/21 02/01/22 Naproxen 500 mg PO BID PRN 10/19/21 02/01/22 Valsartan [Diovan] 40 mg PO DAILY 10/19/21 02/01/22 metFORMIN HCL [metFORMIN HCL ER 1,000 mg PO BID 10/19/21 02/01/22 Osmotic] Aspirin [Adult Low Dose Aspirin EC] 81 mg PO DAILY 11/23/21 02/01/22 Zytiga (Unknown Dose) 4 tab PO DAILY 11/23/21 02/01/22 predniSONE 5 mg PO BID 11/23/21 02/01/22 Previous Rx's Medication Instructions Recorded HYDROcodone/APAP 5-325MG [[place] 5] 1 each PO Q6HR PRN #12 tab 04/25/22 Ondansetron Odt [Zofran Odt] 4 mg PO Q8HR PRN #10 tab 04/25/22 Tamsulosin [Flomax] 0.4 mg PO DAILY #7 cap 04/25/22 Allergies Allergy/AdvReac Type Severity Reaction Status Date / Time No Known Allergies Allergy Verified 02/01/22 08:24 Review of Systems ROS Statement: Those systems with pertinent positive or pertinent negative responses have been documented in the HPI. ROS Other: All systems not noted in ROS Statement are negative. 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 Past Anesthesia/Blood Transfusion Reactions: Previous Problems w/ Anesthesia Additional Past Anesthesia/Blood Transfusion Reaction / Comment(s): STATES BP SPIKED BUT HE WAS NOT ON BP MEDS AT THE TIME. Date of Last Stent Placement:: 06/09/2012 Smoking Status: Never smoker - Past Family History Mother Family Medical History: No Reported History Father Family Medical History: Cancer Additional Family Medical History / Comment(s): pancreatic CA at age 85 General Exam Limitations: no limitations (Well-developed, well-nourished male in no acute distress. Initial temperature 98.5, pulse 76, his patient 16, blood pressure 156/64, pulse ox 97% on room air.) General appearance: alert, in no apparent distress ENT exam: Present: normal exam, normal oropharynx, mucous membranes moist Respiratory exam: Present: normal lung sounds bilaterally. Absent: respiratory distress, wheezes, rales, rhonchi, stridor Cardiovascular Exam: Present: regular rate, normal rhythm, normal heart sounds. Absent: systolic murmur, diastolic murmur, rubs, gallop, clicks GI/Abdominal exam: Present: soft, normal bowel sounds. Absent: distended, tenderness, guarding, rebound, rigid Back exam: Absent: CVA tenderness (R), CVA tenderness (L) Neurological exam: Present: alert, oriented X3, CN II-XII intact Psychiatric exam: Present: normal affect, normal mood Skin exam: Present: warm, dry, intact, normal color. Absent: rash Course Vital Signs 04/24/22 21:28 Temperature 98.5 F Pulse Rate 76 Respiratory 16 Rate Blood Pressure 156/64 O2 Sat by Pulse 97 Oximetry - Reevaluation(s) Reevaluation #1: 04/24/22 01:39 Discussed laboratory studies, specifically elevated white blood cell count, at length with the patient and spouse. I expressed concern about possible infection simply based on numerical value. Spouse clarifies that patient was seen by oncology CRANE HOOKER this past week and had a WBC count of 24 which they were happy with given the injection he receives to stimulate white blood cell production while on chemo. As patient is afebrile, not tachycardic, and has no other indicators of infection, I am confident that there is no need of antibiotic therapy. Medical Decision Making - Medical Decision Making This is a pleasant 82-year-old male with a past medical history of kidney stones who is currently undergoing treatment for prostate cancer presenting to the emergency Department with complaints of right flank pain, onset this evening. Upon exam, patient is nontoxic, well appearing, and in no acute distress as his discomfort resolved while waiting for a room. Physical exam findings are unremarkable. CT shows small obstructing renal calculus at the right UVJ with hydroureter and perinephric edema. Laboratory studies show urinalysis positive for trace amount of blood, BUN and creatinine are elevated suggesting acute renal impairment, and WBC 24.5. Findings were discussed with patient and spouse. Leukocytosis is expected and consistent injection he is receiving from his oncologist to stimulate white blood cell production while undergoing chemo. There is no evidence of infectious process. Patient will be discharged home with [facility] and [place]. He is instructed to follow up with his PCP or urologist this week. Return parameters were discussed in detail. Patient verbalizes understanding and agrees with this plan. Attending: Dorinda. - Lab Data Result diagrams: 04/25/22 01:40 04/24/22 21:46 Lab Results 04/24/22 04/24/22 04/25/22 Range/Units 21:46 21:56 01:40 WBC 24.5 H (3.8-10.6) k/uL RBC 3.65 L (4.30-5.90) m/uL Hgb 11.2 L (13.0-17.5) gm/dL Hct 35.0 L (39.0-53.0) % MCV 95.8 (80.0-100.0) fL MCH 30.8 (25.0-35.0) pg MCHC 32.1 (31.0-37.0) g/dL RDW 16.4 H (11.5-15.5) % Plt Count 173 (150-450) k/uL MPV 9.6 Neutrophils % 90 % Lymphocytes % 6 % Monocytes % 3 % Eosinophils % 0 % Basophils % 0 % Neutrophils # 21.9 H (1.3-7.7) k/uL Lymphocytes # 1.4 (1.0-4.8) k/uL Monocytes # 0.8 (0-1.0) k/uL Eosinophils # 0.0 (0-0.7) k/uL Basophils # 0.1 (0-0.2) k/uL Hypochromasia Slight Anisocytosis Slight Sodium 136 L (137-145) mmol/L Potassium 4.3 (3.5-5.1) mmol/L Chloride 105 (98-107) mmol/L Carbon Dioxide 22 (22-30) mmol/L Anion Gap 9 mmol/L BUN 23 H (9-20) mg/dL Creatinine 1.39 H (0.66-1.25) mg/dL Est GFR (CKD-EPI)AfAm 56 (>60 ml/min/1.73 sqM) Est GFR (CKD-EPI)NonAf 48 (>60 ml/min/1.73 sqM) Glucose 95 (74-99) mg/dL Calcium 9.9 (8.4-10.2) mg/dL Urine Color Light Yellow Urine Appearance Clear (Clear) Urine pH 6.0 (5.0-8.0) Ur Specific [place] 1.017 (1.001-1.035) Urine Protein Trace H (Negative) Urine Glucose (UA) Negative (Negative) Urine Ketones Negative (Negative) Urine Blood Trace H (Negative) Urine Nitrite Negative (Negative) Urine Bilirubin Negative (Negative) Urine Urobilinogen <2.0 (<2.0) mg/dL Ur Leukocyte Esterase Negative (Negative) Urine RBC 5 (0-5) /hpf Urine WBC 1 (0-5) /hpf Urine Mucus Rare H (None) /hpf - Radiology Data Radiology results: report reviewed, image reviewed CT of the abdomen and pelvis without contrast was obtained. Report was reviewed in its entirety. Impression per Dr. Jones is small obstructing calculus at the right UVJ with hydronephrosis and perinephric edema and hydroureter. Multiple bilateral renal calculi. Obstruction appears new compared to old exam. Normal appendix. Small bladder calculus. Disposition Clinical Impression: Right kidney stone Disposition: HOME SELF-CARE Condition: Stable Instructions (If sedation given, give patient instructions): Kidney Stones (ED) Additional Instructions: Increase intake of fluids. May take [place] if needed for severe pain. Zofran is for nausea. Flomax is to be taken once daily. Follow-up with your PCP or urologist this week for a recheck. Return to the emergency department with any new, worsening, or concerning symptoms such as increased pain, inability to urinate, or fever. Prescriptions: Tamsulosin [Flomax] 0.4 mg PO DAILY #7 cap HYDROcodone/APAP 5-325MG [[place] 5] 1 each PO Q6HR PRN #12 tab PRN Reason: Pain Ondansetron Odt [Zofran Odt] 4 mg PO Q8HR PRN #10 tab PRN Reason: Nausea Is patient prescribed a controlled substance at d/c from ED?: Yes When asked, does pt state using other controlled substances?: No If prescribed controlled substance>3 days was MAPS reviewed?: Prescribed <3 Days If opioid is for acute pain is fill amount 7 days or less?: Yes If Rx opioid, was Start Talking consent form obtained?: Yes Referrals: Azael Mederos MD [Primary Care Provider] - 1-2 days Tulio Montaño MD [STAFF PHYSICIAN] - 1-2 days Time of Disposition: 02:38
== END 2022-04-25 02:52 | disposition home or self-care (01) ==
LOC: EC 20:58
DX: N13.2 Hydronephrosis with renal and ureteral calculous obstruction (principal); D72.829 Elevated white blood cell count, unspecified; J44.9 Chronic obstructive pulmonary disease, unspecified; I10 Essential (primary) hypertension; E11.9 Type 2 diabetes mellitus without complications; I48.91 Unspecified atrial fibrillation; I25.10 Atherosclerotic heart disease of native coronary artery without angina pectoris; H91.90 Unspecified hearing loss, unspecified ear; E07.9 Disorder of thyroid, unspecified; Z79.899 Other long term (current) drug therapy; Z79.890 Hormone replacement therapy; Z79.82 Long term (current) use of aspirin; Z79.84 Long term (current) use of oral hypoglycemic drugs
CPT/HCPCS: 36415; 74176; 80048; 81001; 85025; 99284

== ENCOUNTER → 2022-05-03 | Outpatient (CLI) | payer MEDICARE ==
--- NOTE | 2022-05-03 14:40 | MR ---
EXAMINATION TYPE: MR lumbar spine wo/w con DATE OF EXAM: 05/03/2022 COMPARISON: CT abdomen and pelvis April 25, 2022. Whole-body bone scan February 12, 2022 HISTORY: Job lower extremity pain, spinal stenosis, hx of prostate cancer TECHNIQUE: Multiplanar, multisequence images of the lumbar spine is performed without and with IV contrast, util izing 8 mL intravenous Gadavist FINDINGS: Sagittal images of the lumbar spine show vertebral body heights and alignment to remain sat isfactory. Multilevel disc desiccation is present with moderate disc space narrowing L3-L4 through th e L5-S1 levels. The conus medullaris is normal in position and signal ending superior L1 level. The bone marrow signal intensity is within normal limits. Mild to moderate multilevel anterior and later al spurring. No abnormal postcontrast enhancement. Axial images show T12-L1 and L1-L2 levels to appear within normal limits. Axial images at L2-L3 level show [id number] broad disc bulge mildly effaces the anterior thecal sac with asymmetric mild right greater than left bilateral anterior inferior neural foraminal narrow ing. Axial images at L3-L4 level show moderate to advanced broad disc bulge effacing anterior thecal sac a long with mild facet arthropathy bilaterally. There is moderate right and mild left-sided neural fora karen narrowing. Axial images at L4-L5 level shows advanced broad disc bulge with disc extrusion extending superiorly sagittal image 8 left paracentral region along with advanced facet arthropathy bilaterally. There is effacement of the anterior and lateral thecal sac bilaterally with moderate right and moderate to adv anced left-sided neural foraminal narrowing. Axial images at L5-S1 level shows moderate to advanced facet arthropathy bilaterally. There is right paracentral disc protrusion mildly facing the anterior thecal sac. There is moderate to advanced righ t and mild left-sided neural foraminal narrowing. No suspicious retroperitoneal findings. IMPRESSION: Multilevel degenerative changes greatest in the mid to lower lumbar spine as detailed abo ve.
== END | disposition home or self-care (01) ==
LOC: RADMRIMAIN 13:00
PROVIDERS: ATTEND Internal Medicine Hematology & Oncology
DX: M51.26 Other intervertebral disc displacement, lumbar region (principal); M47.816 Spondylosis without myelopathy or radiculopathy, lumbar region; M48.061 Spinal stenosis, lumbar region without neurogenic claudication
CPT/HCPCS: 72158; A9585

== ENCOUNTER 2022-06-17 11:05 | Day surgery (SDC) | payer MEDICARE ==
[2022-06-16 11:09] VITALS: BMI 28.1
[~2022-06-17 11:05] MED LIST changes: +LIDOCAINE 1% (10MG/ML) FOR IV START INTRADERMA PRN
[2022-06-17 11:28] LABS: Glucose,Whole Blood 162 mg/dL (70-110)
[2022-06-17 11:30] VITALS: TEMP 97.8
[2022-06-17] MEDS ORDERED: methylPREDNISolone ACETATE 40 MG/ML 1 ML VIAL ONE (11:35)
[2022-06-17] MEDS ORDERED: IOPAMIDOL M200 10 ML VIAL ONE (11:35)
--- NOTE | 2022-06-17 11:45 | P.PCN ---
Date of Procedure: 06/17/22 Procedure(s) Performed: PREOPERATIVE DIAGNOSIS: 1- Lumbar Degenerative Disc Diseases 2-Lumbar foraminal stenosis POSTOPERATIVE DIAGNOSIS: Same as preop diagnosis. PROCEDURE 1. Lumbar epidural steroid injection under fluoroscopic guidance at the L4-5 level. (Fluoroscopy imaging was available in radiology department) 2. Lumbar epidurogram. ANESTHESIA: Local with 1% lidocaine 3 ml only. EBL: Minimal PROCEDURE INDICATION: The patient with low back pain and radiculitis symptoms unresponsive to conservative treatment. Fluoroscopy was used to optimize visualization of the needle placement and to maximize safety. PROCEDURE DESCRIPTION / TECHNIQUE: The patient was seen and identified in the preoperative area. Risks, benefits, complications including but not limited to infections ,bleeding ,allergic reaction to the medications ,nerve damage and not complete pain releife , and alternatives were discussed with the patient. The patient agreed to proceed with the procedure and signed the consent. IV was started, and vital signs were stable. Patient was taken to the OR and time out was completed. The patient was placed in the prone position on procedure table and a pillow was placed under the abdomen to reduce lumbar lordosis. The lumbosacral area was prepped and draped in the usual sterile fashion.ere closely monitored during the procedure. Vital signs was monitered during the entire procedure. Using anterior-posterior fluoroscopy, the L4-5 interlaminar space was identified and the skin over this site was marked and then infiltrated with 1% lidocaine subcutaneously. Subsequently, a 20-gauge Tuohy epidural needle was inserted and advanced toward the epidural space using the ``Loss of resistance technique and guided by AP and lateral fluoroscopy. The correct needle position in the epidural space was verified with the injection of 2 mL of the water soluble contrast dye Isovue 200 contrast and observing an excellent epidurogram with the epidural spread of the dye, after negative aspiration for blood and CSF and in the absence of paresthesias. Again after negative aspiration, a 6 ml mixture containing 40 mg of Depo-medrol , and 2 ml of preservative free Normal Saline, and 2 ml of preservative free lidocaine 1% solution was injected and a washout o f epidurogram was seen. Needle was withdrawn intact, skin was cleansed, and bandages were applied. COMPLICATIONS: None DISPOSITION / PLANS: The patient was placed in a supine position and transferred to the recovery area in a stable condition for observation. There was no evidence of lower extremity motor or sensory deficit after the procedure. Patient was discharged from the recovery room after meeting discharge criteria. Home discharge instructions were given to the patient by the staff. The patient was reexamined prior to discharge. The patient will schedule a follow up in the clinic in 2-4 weeks.
[2022-06-17 11:51] VITALS: RESP 16
[2022-06-17 12:03] VITALS: BP 141/76; PULSE 76
--- NOTE | 2022-06-17 12:16 | FL ---
EXAMINATION TYPE: FL guided pain mgmt statistic DATE OF EXAM: 06/17/2022 HISTORY: Fluoroscopy time 2 seconds of fluoroscopy provided. IMPRESSION: 1. Fluoroscopy time.
== END 2022-06-17 12:18 | disposition home or self-care (01) ==
LOC: ORPAIN 11:05
PROVIDERS: ATTEND Specialist
DX: M51.16 Intervertebral disc disorders with radiculopathy, lumbar region (principal); M48.061 Spinal stenosis, lumbar region without neurogenic claudication; M47.26 Other spondylosis with radiculopathy, lumbar region
CPT/HCPCS: 62323; J1030; Q9966

== ENCOUNTER → 2022-07-08 | Outpatient (CLI) | payer MEDICARE ==
[2022-07-08 13:50] VITALS: BP 125/71; PULSE 75; RESP 18; TEMP 98.2
--- NOTE | 2022-07-08 14:53 | P.PAINPG ---
PQRS Measure Charge Sheet Comment: A 82 yr old male with a history of severe and chronic low back pain secondary to lumbar degenerative disc diseases and lumbar spondylosis with facet arthropathy without myelopathy presents today for evaluation s/p RONNIE L4-L5. Pt states he experienced % pain relief x 3 wks s/p procedure. Pain level is curren tly at 8/10 in intensity when walking for periods of 20 min or more, constant, localized in the lower lumbar spine, L>R, sharp in character w shooting towards the BLEs. Pain is provoked by walking. Pain is alleviated with medications ([place]), heating pad use, injections, PT x 4 wks but will be interrupted due to travel plans, home stretching regimen, sitting and rest. Interventional pain procedures completed include LESI L4-L5. Patient is currently on [place] prn Patient denies any side effects of the medication(s), denies excessive drowsiness or sleepiness, denies suicidal ideation and reports that the current pain medication is helping to control the pain and improve activities of daily living. Patient denies any motor or sensory deficits. Patient denies any fever or night sweats, denies any change in the bowel movements or urination. Physical Examination: -Constitutional: Cooperative. Not in acute distress . - Neurologic: Cranial nerve II to XII intact. No focal neurological deficit s. - Psychatric: Alert & oriented x 3. Matching mood & appropriate affect. Judgment and insight intact. - Musculoskeletal: Cervical spine: Muscle bulk/ tone/ strength in the bilateral upper extremities normal Vertebral body tenderness to palpation over Sp[place]ling test positive Distraction test positive Facet loading test positive Thoracic spine Muscle bulk / tone/ strength in the bilateral paraspinal muscles normal Vertebral body tender to palpation over Facet loading test positive Lumbar spine: Motor bulk/ tone/ strength lower extremities , thigh and legs : 5/5 Deep tendon reflexes : Normal Knee Jerk. Normal Ankle Jerk . Vertebral body tenderness to palpation over Lumbar Facet Loading Test positive BL w lateral flexion Straight Leg Raise: positive at 30 degrees right side/ left side Gaenslen's Test positive Sacral spine : Severe tenderness over the Sacroiliac joint: right side / left side Range of motion: Flexion of the lumbar spine <60 degrees Range of motion: Extension of the lumbar spine <20 degrees Gaenslen's Test positive Dima's Test positive Delfin test: positive right side / left side Thigh Thrust Test Sacral Thrust Test Assessment and plan: Chronic low back pain secondary to lumbar degenerative disc disease , lumbar spondylosis with facet arthropathy without myelopathy Recommendation of BL MBB L4-L5, L5-S1. May need a series of injections, up until RFA, for optimal pain relief. Risks, benefits of procedure discussed and pt verbalized understanding. Admitss anticoagulant use or medical history of diabetes. Protocol for discontinuation/ continuation of medications dilia procedure discussed. All patient questions answered I have spent less than 30 minutes on patient care today. Dr Ndiaye was available by phone for the evaluation of this patient. The time was used to review the medical records including relevant urine studies and Prescription history (MAPs), review of the available imaging, evaluation and examination of the patient, coordination of care with the medical staff and if applicable referring physicians, as well as creation of the medical record - Pain Location Bilateral Lower Back Non-Pharmacological Interventions: Exercise, Heat, Ice, Physical Therapy, Sitting, Stretching Pharmacological Interventions: Epidural PQRS Narrative: Smoking Status Never smoker Hx Alcohol Use (MH) No Home Medications: Ambulatory Orders Cholecalciferol [Vitamin D3] 50 mcg PO DAILY 03/12/15 Fish Oil/Dha/Epa [Fish Oil 1,200 mg Fish Oil] 1,200 mg PO DAILY 03/12/15 Atorvastatin [Lipitor] 20 mg PO HS 01/18/17 Montelukast [Singulair] 10 mg PO HS 01/18/17 amLODIPine BESYLATE [Norvasc] 5 mg PO HS 01/18/17 carvediloL [Coreg] 3.125 mg PO BID 01/18/17 Levothyroxine Sodium [Synthroid] 100 mcg PO DAILY 05/06/19 Leuprolide Acetate [Eligard] 45 mg SQ Q180D 10/19/21 Naproxen 500 mg PO BID PRN 10/19/21 Valsartan [Diovan] 40 mg PO DAILY 10/19/21 Aspirin [Adult Low Dose Aspirin EC] 81 mg PO DAILY 11/23/21 predniSONE 5 mg PO BID 11/23/21 HYDROcodone/APAP 5-325MG [[place] 5] 1 each PO Q6HR PRN #12 tab 04/25/22 Janumet (Unknown Dose) 1 tab PO DAILY 06/16/22 Repaglinide [Prandin] 2 mg PO BID 06/16/22 Controlled Substance Measures - Controlled Substance Measures Is patient prescribed a controlled substance at discharge?: No
== END ==
LOC: PNWHC3 13:13
PROVIDERS: ATTEND Specialist
DX: M51.36 Other intervertebral disc degeneration, lumbar region (principal); M47.816 Spondylosis without myelopathy or radiculopathy, lumbar region; G89.29 Other chronic pain
CPT/HCPCS: 99211

== ENCOUNTER → 2022-08-17 | Outpatient (CLI) | payer MEDICARE ==
[2022-08-17 10:37] LABS: African American GFR (CKD) >90 (>60 ml/min/1.73 sqM); Blood Urea Nitrogen 15 mg/dL (9-20); Non-African American GFR(CKD) 83 (>60 ml/min/1.73 sqM)
--- NOTE | 2022-08-17 12:35 | CT ---
EXAMINATION TYPE: CT ChestAbdPelvis w con DATE OF EXAM: 08/17/2022 COMPARISON: Prior whole body CT February 12, 2022 and older studies. HISTORY: f/u prostate ca CT DLP: 998.4 mGycm. Automated Exposure Control for Dose Reduction was Utilized. CONTRAST: CT scan of the thorax, abdomen and pelvis is performed with oral and with IV Contrast, patient inject ed with 70cc mL of Isovue 300. FINDINGS: LUNGS: Stable 6 mm calcified nodule or granuloma left lower lobe axial image 39. No significant new n oncalcified greater than 5 mm pulmonary nodules or masses. There is no pleural effusion or pneumothor ax seen. The tracheobronchial tree is patent. MEDIASTINUM: There are no greater than 1 cm noncalcified hilar or mediastinal lymph nodes. Calcified subcentimeter bilateral hilar and subcarinal lymph nodes are redemonstrated. No cardiomegaly or dilia cardial effusion is seen. Moderate coronary artery calcifications are redemonstrated. LIVER/GB: Liver remains diffusely low dense suggesting diffuse fatty infiltration. Subcentimeter low dense lesion posterior right hepatic dome axial image 48 is redemonstrated and stable presumed benign PANCREAS: No significant abnormality is seen. SPLEEN: No significant abnormality is seen. ADRENALS: No significant abnormality is seen. KIDNEYS: Stable 2 to 3 mm lower pole left renal calculus coronal image 43. Interval passage of 9 mm c alculus upper pole right kidney prior study due to the UPJ with new mild right-sided hydronephrosis b ut no delayed excretion. Simple appearing thin-walled exophytic 1.0 cm cyst laterally midpole of righ t kidney on axial image 74 is stable. BOWEL: Oral contrast does not reach colonic level making follow-up evaluation slightly suboptimal. Th ere is no suspicious small or large bowel dilatation. Normal-appearing appendix incidentally noted. Prostate: Not visualized suspect or surgically absent similar to prior. Scattered bilateral pelvic ph leboliths redemonstrated. LYMPH NODES: Stable 1.3 cm left para-aortic mass or lymph node with central density or calcification or possible surgical clip axial image 83. No new greater than 1 cm abdominal or pelvic adenopathy. OSSEOUS STRUCTURES: There is multilevel vacuum disc phenomenon with mild to moderate multilevel disc space narrowing most prominent at the lumbosacral junction. There is mild multilevel spurring in the thoracolumbar spine. There is facet arthropathy lower lumbar levels. More prominent sclerosis involving the anterior right acetabulum axial image 114. Sclerotic lesion le ft clavicle axial image 3 is noted. Sclerotic focus right anterior third rib axial image 21 and later al seventh rib axial image 39 are noted. Findings correlate with bone scan on February 12. OTHER: Mild to moderate peripheral calcified plaque of the aorta extends into branch vessels. Small f at-containing bilateral inguinal hernias redemonstrated. IMPRESSION: Osseous sclerotic metastatic disease redemonstrated correlating with most recent bone sca n. No new mass or adenopathy otherwise seen to suggest active neoplastic progression. Passage of 9 mm calculus to right UPJ causing mild right-sided hydronephrosis but no delayed excretion is noted.
== END | disposition home or self-care (01) ==
LOC: RADCTMAIN 09:44
PROVIDERS: ATTEND Internal Medicine Hematology & Oncology
DX: C61 Malignant neoplasm of prostate (principal); N13.2 Hydronephrosis with renal and ureteral calculous obstruction
CPT/HCPCS: 82565; 84520; 71260; 74177; 36415; Q9967

== ENCOUNTER 2022-09-03 08:21 | Day surgery (SDC) | payer MEDICARE ==
[2022-09-01 13:39] VITALS: BMI 28.1
[2022-09-03 08:53] VITALS: RESP 16; TEMP 97.5
[2022-09-03 09:07] LABS: Glucose,Whole Blood 118 mg/dL (70-110)
[2022-09-03] MEDS ORDERED: ROPIVACAINE 5 MG/ML 20 ML AMPULE ONE (09:30)
[2022-09-03] MEDS ORDERED: MIDAZOLAM 2 MG/2 ML VIAL ONE (09:30)
[2022-09-03] MEDS ORDERED: methylPREDNISolone ACETATE 40 MG/ML 1 ML VIAL ONE (09:30)
[2022-09-03] MEDS ORDERED: fentaNYL (PF) 50 MCG/ML 2 ML AMP ONE (09:30)
--- NOTE | 2022-09-03 09:47 | P.PCN ---
Date of Procedure: 09/03/22 Procedure(s) Performed: PREOPERATIVE DIAGNOSIS : 1- Lumbar spondylosis with Facet Arthropathy without myelopathy . 2- Lumber degenerative disc disease POSTOPERATIVE DIAGNOSIS: 1- Lumbar spondylosis with Facet Arthropathy without myelopathy . 2- Lumber degenerative disc disease PROCEDURE: Diagnostic bilateral L3 , L4 , and L5 medial branch block under fluoroscopy guidance(fluoroscopy images available in the radiology Department ) ( To target the facet joint between bilateral L4-5 , and L5-S1 )# 1st ANESTHESIA:, Monitored anesthesia care as per anesthesia department. EBL: Minimal COMPLICATION: None PROCEDURE INDICATION: Chronic low back pain secondary to Facet arthropathy unresponsive to conservative treatment. PROCEDURE DESCRIPTION: the patient was seen and identified in the preop holding area , risks and benefits and possible complications of the procedure and alternative were discussed with the patient, and the patient agreed to proceed with the procedure and signed the consent and vital signs monitored during the procedure and fluoroscopy was used to maximize the benefit and accuracy of the needle placement, and sedation was given to decrease patient anxiety, patient was taken to the procedure room and placed in prone position vital signs monitored in the back prepped with chlorhexidine X3 then under strict sterile technique using a right oblique fluoroscopy ,the junction of the transverse process and the superior articulating process of the right L3 , L4 , and L5 vertebra which corresponding to the fluoroscopy image of the eye of the Jacobo dog on the block side for the medial branches and subsequently , after local infiltration of skin and subcu tissuies with Ropivacaine 0.5 % , one mL at each level ,then 22-gauge Quincke-type needles , 3 needle was used , each one of them placed at the junction of the base of the transverse process and the superior articular process at the appropriate level, and the needle was advanced until the periosteum contacted, needle placement confirmed with AP oblique and lateral view and after appropriate needle placement confirmed, and after negative aspiration for heme and CSF and there was no paresthesia 1-1/2 mL of Ropivacaine 0.5% mixed with 20 mg Depo-Medrol , then half mL injected at each level after negative aspiration the needle subsequently removed and the same procedure repeated for the left side at left side at L3 , L4 and L5 levels. At the end of the procedure and the needles removed and a bandage applied after the skin was cleaned the cleaning solution patient taken to recovery room in stable condition and monitors in the recovery room for 20-30 minutes and discharged home in stable condition after discharge criteria met and patient will follow up with the pain clinic in 2-4 weeks
[2022-09-03] MEDS ORDERED: IV FLUID CONTINUATION 1,000 ML IV ONE ×2 (09:54)
[2022-09-03 10:15] VITALS: BP 148/65; PULSE 76
--- NOTE | 2022-09-03 10:23 | FL ---
EXAMINATION TYPE: FL guided pain mgmt statistic DATE OF EXAM: 09/03/2022 CLINICAL HISTORY: Low back pain. TECHNIQUE: Fluoroscopy. COMPARISON: None. FINDINGS: Fluoroscopic guidance was provided during pain relief procedure performed by Dr. Ndiaye . A total of 7 seconds of fluoroscopic time was utilized during the procedure and 4 spot images are acquired. Images acquired shows needle localization at several levels in the lumbar spine. IMPRESSION: As Above.
== END 2022-09-03 10:34 | disposition home or self-care (01) ==
LOC: ORPAIN 08:21
PROVIDERS: ATTEND Specialist
DX: M47.816 Spondylosis without myelopathy or radiculopathy, lumbar region (principal); M51.36 Other intervertebral disc degeneration, lumbar region; G89.29 Other chronic pain; I10 Essential (primary) hypertension; E78.5 Hyperlipidemia, unspecified; I25.10 Atherosclerotic heart disease of native coronary artery without angina pectoris; J45.909 Unspecified asthma, uncomplicated; E07.9 Disorder of thyroid, unspecified; Z95.5 Presence of coronary angioplasty implant and graft; Z98.890 Other specified postprocedural states; Z90.79 Acquired absence of other genital organ(s); Z79.82 Long term (current) use of aspirin; Z79.890 Hormone replacement therapy; Z79.899 Other long term (current) drug therapy
CPT/HCPCS: 64493; 64494; J2250; J1030; J3010; J2795

== ENCOUNTER → 2022-09-08 | Outpatient (CLI) | payer MEDICARE ==
--- NOTE | 2022-09-08 14:45 | NM ---
EXAMINATION TYPE: NM bone scan whole body DATE OF EXAM: 09/08/2022 COMPARISON: 02/12/2022 HISTORY: Prostate cancer Delayed whole-body scanning was performed following the injection of 22.1 mCi Tc 99m MDP. Images acq uired 3 hours post injection. FINDINGS: Intense abnormal uptake in the region of the upper cervical spine. Intense abnormal uptake left clavi arash. Intense abnormal uptake involving the anterior margin of the upper right rib cage and anterior l ateral margin of the mid to lower right rib cage. Intense abnormal uptake posterior left-sided rib. I ntense abnormal uptake involving the right acetabulum. New areas of abnormal uptake: There are new areas of abnormal uptake involving the lower lumbar spine on the right, right anterior rib gauge and the left anterior rib cage. Additional areas of focal abnormal uptake involving the mid thoracic spine and thoracolumbar junction. Abnormal uptake near the right acetabulum stable. IMPRESSION: 1. Multiple areas of abnormal uptake concordant with CT findings and compatible with metastasis. Ther e is progression of involvement of the rib cage and vertebral column as discussed above.
== END | disposition home or self-care (01) ==
LOC: RADNMMAIN 10:20
PROVIDERS: ATTEND Internal Medicine Hematology & Oncology
DX: C61 Malignant neoplasm of prostate (principal)
CPT/HCPCS: 78306; A9503

== ENCOUNTER → 2022-10-08 | Outpatient (CLI) | payer MEDICARE ==
--- NOTE | 2022-10-09 12:16 | PE ---
EXAMINATION TYPE: PET CT fusion skull to thigh DATE OF EXAM: 10/08/2022 CLINICAL INDICATION:Male, 82 years old with history of C61 Prostate CA; TECHNIQUE: Following the intravenous administration of 6.27 mCi of Ga-68 Illuccix (PSMA), whole bod y images are performed from the skull base to the midthigh. Images are reviewed on the computer in t he coronal, axial, and sagittal planes. Reconstructed rotating images are created on independent wor kstation and reviewed on the computer. A non-contrast CT is performed in conjunction with the PET s can. COMPARISON: CT 08/17/2022, PET/CT 07/13/2018 [facility], 10/06/2021 [facility] PET [facility], nuclear medicine bone scan 09/08/2022. FINDINGS: Mediastinal SUV mean is 1.0. Hepatic parenchyma SUV mean is 2.5. SKULL BASE AND NECK: No suspicious radiotracer activity. CHEST, MEDIASTINUM, AND HILAR REGION: No suspicious radiotracer activity. ABDOMEN AND PELVIS: Scattered radiotracer activity within lymph nodes seen on prior PET 10/06/2021. On today's exam * Increase in size of right external iliac lymph node measuring up to 2.1 cm Max SUV 7.1. This measu red 1.5 cm on 10/06/2021 and 1.8 cm on 08/17/2022. * Anterior right of the bladder lymph node measuring 0.9 cm, previously 0.8 cm on 10/06/2021 and 0.8 c m on 08/17/2022, with max SUV 0.9. * Increase in size of right common iliac lymph node measuring up to 1.7 cm, previously 0.5 cm on 10/06 and 1.4 cm on 08/17/2022 with max SUV 1.3. * Left para-aortic lymph node measuring 1.4 cm previously 1.4 cm Max SUV 0.6. * Right internal iliac lymph nodes remain present measuring 7 mm and 10 mm Max SUV 1.2. The prostate gland appears surgically absent. No abnormal radiotracer activity within the surgical be d. OSSEOUS STRUCTURES: * Abnormal radiotracer activity within the left clavicle max SUV 3.4 extending somewhat elongated al alyssia the clavicle correlating with sclerosis and regular imaging measuring up to 5.1 cm in length. * Right rib 3 anteriorly max SUV 4.9 correlating with sclerosis on CT. * Subtle abnormal PSMA activity in right rib [address] sclerosis and nuclear medicine bone upt candace max SUV 1.0. * Left posterior rib 9 increased PSMA activity max SUV 2.4 * L1 vertebral body sclerotic focus max SUV 1.8. * T8 vertebral body sclerotic focus max SUV 1.8 * Additional areas of uptake seen on nuclear medicine bone scan are not as well appreciated OTHER CT: Atherosclerosis of the arterial vasculature. Coronary artery atherosclerosis. There is mild ly enlarged for size. Scattered calcified granulomas are present Aortic valve calcifications. Right u reteropelvic junction calculus measuring 10 mm. Left nonobstructing calculus measuring 4 mm. IMPRESSION: Abnormal PSMA activity scattered within the osseous structures along with a right external iliac lymp h node compatible with metastatic prostate adenocarcinoma. No evidence of abnormal PSMA activity with in the prostatic surgical bed. Findings are felt to represent progression of disease compared to 08/[address] CT and 10/06/2021 [facility] PET/CT given increase in size of right external iliac lymph node an d right common iliac lymph node (note this common iliac lymph node does not have increased radiotrace r activity) . Additional increased sclerosis most pronounced at T8 vertebral body compared to 022 and 10/06/2021.
== END | disposition home or self-care (01) ==
LOC: RADPETMAIN 15:26
PROVIDERS: ATTEND Internal Medicine Hematology & Oncology
DX: C61 Malignant neoplasm of prostate (principal); R97.21 Rising PSA following treatment for malignant neoplasm of prostate
CPT/HCPCS: 78815; A9596

== ENCOUNTER → 2022-10-13 | Outpatient (CLI) | payer MEDICARE ==
[2022-10-13 23:46] LABS: Basophils # (A) 0.05 X 10*3/uL (0.00-0.10); Eosinophils # (A) 0.28 X 10*3/uL (0.04-0.35); Eosinophils % (A) 5.3 %; HCT 44.3 % (39.6-50.0); HGB 13.7 g/dL (13.0-17.0); Immature Grans, Automated 0.2 %; Lymphocytes # (A) 1.49 X 10*3/uL (0.90-5.00); Lymphocytes % (A) 28.3 %; MCH 27.5 pg (27.0-32.0); MCHC 30.9 g/dL (32.0-37.0); Monocytes # (A) 0.53 X 10*3/uL (0.20-1.00); Monocytes % (A) 10.1 %; NRBC Per 100 WBC 0 /100 WBCS (0.0-0.0); Neutrophils % (A) 55.1 %; Platelet Count 235 X 10*3/uL (140-440); RBC 4.98 X 10*6/uL (4.40-5.60); RDW 14.6 % (11.5-14.5); WBC 5.26 X 10*3/uL (4.50-10.00)
[2022-10-14 00:41] LABS: African American GFR (CKD) 71.5 (60.0-200.0); Albumin 4.8 g/dL (3.8-4.9); Albumin/Globulin Ratio 2.12 (1.60-3.17); Anion Gap 13.5 mmol/L (10.00-18.00); BUN/Creat Ratio 16.25 Ratio (12.00-20.00); Blood Urea Nitrogen 18.2 mg/dL (9.0-27.0); Calcium 10.3 mg/dL (8.7-10.3); Carbon Dioxide 25.6 mmol/L (20.0-27.5); Globulin 2.3 g/dL (1.6-3.3); Non-African American GFR(CKD) 61.7 (60.0-200.0); Prostate Specific Antigen 2.8 ng/mL (0.00-6.50); Total Bilirubin 0.4 mg/dL (0.30-1.20)
== END | disposition home or self-care (01) ==
LOC: LABWHC1 15:13
PROVIDERS: ATTEND Internal Medicine Hematology & Oncology
DX: Z71.3 Dietary counseling and surveillance (principal); C61 Malignant neoplasm of prostate; D70.2 Other drug-induced agranulocytosis; E03.9 Hypothyroidism, unspecified
CPT/HCPCS: 36415; 80053; 83036; 84153; 85025

== ENCOUNTER → 2022-11-04 | Outpatient (CLI) | payer MEDICARE ==
[2022-11-04 11:42] VITALS: BP 115/64; PULSE 70; RESP 18; TEMP 97.7
--- NOTE | 2022-11-04 15:01 | P.PAINPG ---
PQRS Measure Charge Sheet Comment: A 82 yr old male with a history of severe and chronic LBP x 3 yrs secondary to lumbar DDD and spondylosis with facet arthropathy without myelopathy presents today for evaluation s/p BL facet blocks of the medial branches L4-L5, L5-S1 #1. Pt states he experienced 100% pain relief x 2 days s/p procedure. Pain level is provoked at 7 /10 in intensity, constant, localized in the lumbar spine, sharp/ pulling in character w shooting towards the BL glutes/ thighs. Pain is provoked by standing from a supine position. Pain is alleviated with PT (12 sessions) x 6 wks 5 mo ago, heat, meds ([place], Naproxen from Dr Lee), topicals, sitting, repositioning and rest. Interventional pain procedures completed include BL MBB L3-L5 x1, RONNIE L4-L5 Patient is currently on [place], Naproxen Patient denies any side effects of the medication(s), denies excessive drowsiness or sleepiness, denies suicidal ideation and reports that the current pain medication is helping to control the pain and improve activities of daily living. Patient denies any motor or sensory deficits. Patient denies any fever or night sweats, denies any change in the bowel movements or urination. Physical Examination: -Constitutional: Cooperative. Not in acute distress . - Neurologic: Cranial nerve II to XII intact. No focal neurological def icits. - Psychatric: Alert & oriented x 3. Matching mood & appropriate affect. Judgment and insight intact. - Musculoskeletal: Cervical spine: Muscle bulk/ tone/ strength in the bilateral upper extremities normal Vertebral body tenderness to palpation over Spurling test positive Distraction test positive Facet loading test positive Thoracic spine Muscle bulk / tone/ strength in the bilateral paraspinal muscles normal Vertebral body tender to palpation over Facet loading test positive Lumbar spine: Motor bulk/ tone/ strength lower extremities , thigh and legs : 5/5 Deep tendon reflexes : Normal Knee Jerk. Normal Ankle Jerk . Vertebral body tenderness to palpation over Lumbar Facet Loading Test positive TTP over BL L4-L5, L5-S1 facets Straight Leg Raise: positive at 30 degrees right side/ left side Gaenslen's Test positive Sacral spine : Severe tenderness over the Sacroiliac joint: right side / left side Range of motion: Flexion of the lumbar spine <60 degrees Range of motion: Extension of the lumbar spine <20 degrees Gaenslen's Test positive Delfin test: positive right side / left side Thigh Thrust Test Sacral Thrust Test Assessment and plan: Chronic LBP secondary to lumbar DDD, spondylosis with facet arthropathy without myelopathy Recommendation of BL facet blocks of the medial branches L4-L5, L5-S1 #2. Patient exhibited sufficient and satisfactory pain relief with prior facet block procedure. Risks, benefits of procedure discussed and pt verbalized understanding. Admits to anticoagulant use or medical history of diabetes. Protocol for discontinuation/continuation of medications surrounding procedure discussed. All patient questions answered I have spent less than 30 minutes on patient care today. Dr Ndiaye was available by phone for the evaluation of this patient. The time was used to review the medical records including relevant urine studies and Prescription history (MAPs), review of the available imaging, evaluation and examination of the patient, coordination of care with the medical staff and if applicable referring physicians, as well as creation of the medical record PQRS Narrative: Smoking Status Never smoker Hx Alcohol Use (MH) No Home Medications: Ambulatory Orders Cholecalciferol [Vitamin D3] 50 mcg PO DAILY 03/12/15 Fish Oil/Dha/Epa [Fish Oil 1,200 mg Fish Oil] 1,200 mg PO DAILY 03/12/15 Atorvastatin [Lipitor] 20 mg PO HS 01/18/17 Montelukast [Singulair] 10 mg PO HS 01/18/17 amLODIPine BESYLATE [Norvasc] 5 mg PO HS 01/18/17 carvediloL [Coreg] 3.125 mg PO BID 01/18/17 Levothyroxine Sodium [Synthroid] 100 mcg PO DAILY 05/06/19 Leuprolide Acetate [Eligard] 45 mg SQ Q180D 10/19/21 Naproxen 500 mg PO BID PRN 10/19/21 Valsartan [Diovan] 40 mg PO DAILY 10/19/21 Aspirin [Adult Low Dose Aspirin EC] 81 mg PO DAILY 11/23/21 HYDROcodone/APAP 5-325MG [[place] 5] 1 each PO Q6HR PRN #12 tab 04/25/22 Repaglinide [Prandin] 2 mg PO BID 06/16/22 sitaGLIPtin PHOS/metFORMIN HCL [Janumet 50-1,000 mg Tablet] 1 tab PO DAILY 09/01/22 Controlled Substance Measures - Controlled Substance Measures Is patient prescribed a controlled substance at discharge?: No
== END ==
LOC: PNWHC3 10:15
PROVIDERS: ATTEND Specialist
DX: M47.816 Spondylosis without myelopathy or radiculopathy, lumbar region (principal); M51.36 Other intervertebral disc degeneration, lumbar region; E11.9 Type 2 diabetes mellitus without complications; Z79.82 Long term (current) use of aspirin
CPT/HCPCS: 99211

== ENCOUNTER → 2023-01-05 | Outpatient (CLI) | payer MEDICARE ==
--- NOTE | 2023-01-05 10:43 | P.PN ---
Subjective Progress Note Date: 01/05/23 This is an 82-year-old gentleman with history of lower back pain with radiation to the knees bilaterally. His pain improved after a diagnostic lumbar medial branch block with 100% improvement immediately after the procedure .the patient's pain gets worse with prolonged walking and improves by bending forward. Patient denies new-onset weakness, bowel/bladder incontinence, or any other signs or symptoms of cauda equina syndrome. There are no signs of acute intoxication, and no indications of medication diversion or overuse. In addition to above, 13-point review of systems is also negative for chest pain, shortness of breath, changes in vision, changes in hearing, new onset weakness, abdominal pain, diarrhea, extreme fatigue, malaise, fever, skin changes, homicidal or suicidal ideation, or bowel or bladder incontinence. Vital Signs: Reviewed in EMR Gen: AAOx3, NAD HEENT: PERRLA,hearing grossly normal Pulm: resp unlabored Neck: supple, trachea midline Neuro exam of the lower extremities: Within normal limits Straight leg raising test: Area bilaterally Dima's test: Negative bilaterally Range of motion of the lumbar spine: Facet loading test: Tenderness in the paravertebral musculature: Neuro: CN II-XII grossly intact, Imaging: Reviewed in EMR/chart Assessment: Lumbar spondylosis without myelopathy Lumbar stenosis Lumbar degenerative disc disease Plan: 1. Explanation: When patients on opioids, opioid and psychological risk scores were reviewed. Diagnoses, prognoses, and multiple treatment options including but not limited to physical therapy, interventional therapies, adjuvant medical therapies, narcotic medication therapies, and surgery were discussed with the patient and all questions were answered to the patient's satisfaction. 2. Opioid agreement:When patients are prescribed opoids through our clinic, opioid agreement is signed with the patient and the patient is warned not to use opioids while driving or before driving and not to combine opioids with benzodiazepines or alcohol. 3. Counseling: When patient is smoking or obese, the patient was counseled extensively on SMOKING CESSATION, BODY MASS INDEX, EXERCISE. Specifically, the patient was instructed regarding the importance of smoking cessation, obesity, and exercise in the context of both chronic pain and overall health. 4. Procedures: Scheduled for lumbar medial branch RFA bilaterally at the L4 5 and L5-S1 levels under fluoroscopic guidance 5. Consultations: None 6. Investigations: None 7. Medications: None prescribed 8. Disposition: Proceed with the above-mentioned procedure as soon as possible 9. Maps were reviewed and were appropriate. PQRS measures: 1-Patient's medications are documented in the chart. 2-Tobacco use is negative, counseling given 3-Patient has had a pneumococcal vaccine. 4-Advanced care planning discussed, patient unable to give 5-Opioid contract not signed with the patient. 6-Pain positive, follow-up visit or procedure scheduled 7-Patient's blood pressure measured and documented . The patient will follow up with his primary care physician. 8-Patient's weight was measured. Patient instructed to follow up with PCP. 9-Patient WAS NOT identified as an unhealthy alcohol user. Objective - Vital Signs Vital signs: Intake & Output 01/04/23 01/05/23 01/05/23 18:59 06:59 18:59 Weight 81.647 kg
[2023-01-05 11:40] VITALS: BP 149/70; PULSE 72; RESP 18
== END ==
LOC: PNWHC3 09:39
PROVIDERS: ATTEND Anesthesiology
DX: M51.36 Other intervertebral disc degeneration, lumbar region (principal); M47.816 Spondylosis without myelopathy or radiculopathy, lumbar region; M48.061 Spinal stenosis, lumbar region without neurogenic claudication
CPT/HCPCS: 99211

== ENCOUNTER 2023-01-28 06:11 | Day surgery (SDC) | payer MEDICARE ==
[2023-01-28 06:44] VITALS: TEMP 97.8
[2023-01-28 07:03] LABS: Glucose,Whole Blood 100 mg/dL (70-110)
[2023-01-28] MEDS ORDERED: fentaNYL (PF) 50 MCG/ML 2 ML AMP ONE (07:04)
[2023-01-28] MEDS ORDERED: methylPREDNISolone ACETATE 40 MG/ML 1 ML VIAL ONE (07:04)
[2023-01-28] MEDS ORDERED: ROPIVACAINE 5 MG/ML 20 ML AMPULE ONE (07:04)
[2023-01-28] MEDS ORDERED: MIDAZOLAM 2 MG/2 ML VIAL ONE (07:04)
--- NOTE | 2023-01-28 07:31 | P.PCN ---
Date of Procedure: 01/28/23 Procedure(s) Performed: PREOPERATIVE DIAGNOSIS: 1-Lumbar Spondylosis with Facet Arthropathy without myelopathy. 2- Lumber degenerative disc disease. POSTOPERATIVE DIAGNOSIS: 1- Lumbar Spondylosis with Facet Arthropathy without myelopathy. 2- Lumber degenerative disc disease. PROCEDURES : Bilateral Radiofrequency thermocoagulation, L3 , L4 , and L5 medial branch, with fluoroscopic guidance (fluoroscopy images available in the radiology department) ( to denervate the facet joint at bilateral L4-5 ,and L5-S1 levels ). ANESTHESIA: Monitored anesthesia care as per anesthesia department . EBL: Minimal PROCEDURE INDICATION: The patient with low back pain secondary to lumbar facet arthropathy who had more than 80% relief of her pain with previous diagnostic lumbar medial branch block with bupivacaine. PROCEDURE DESCRIPTION / TECHNIQUE: The patient was seen and identified in the preoperative area. Risks, benefits, complications, including but not limited to risk of infection ,bleeding , allergic reactions to the medications and no complete pain releife , and alternatives were discussed with the patient, the patient agreed to proceed with the procedure and signed the consent. IV was started. Vital signs remained stable throughout the procedure. Patient was taken to the OR and time out was completed. The patient was placed in the prone position on the procedure table. The lumber area was prepped and draped in the usual sterile fashion. . Vital signs were closely monitored during the procedure .IV sedation was used during the procedure to decrease patients anxiety. Using AP and then oblique fluoroscopy, the ``eye of the Jacobo dog co rresponding to the connection between the superior and transverse articular processes of right L3, L4, and L5 were identified, marked, and localized with 1% lidocaine. Subsequently, a [id number] radiofrequency cannula with a 10- mm active tip was advanced guided by fluoroscopy to each of the``eyes of the Jacobo dog at right L3, L4, and L5. Each site then underwent sensory testing at 50 Hz and 0 to 1 volt and motor testing at 2.5 Hz and 0 to 3 volt with local stimulation, but no radicular symptoms down the legs. Thereafter each sites underwent radiofrequency thermocoagulation at 80 degrees celsius for 90 seconds after injecting 0.5 ml of PF Ropivacaine 1ml, then after the thermocoagulation done , 1 ml of the block solution containing Depo-Medrol 20 mg and 3 ml of Ropivacaine 0.5% was injected at the right L3 , L4 , and L5 , levels after negative aspiration of CSF and blood and with no paresthesias. Cannulas were retracted while injecting lidocaine 1% until the needle is out. The same procedure was repeated at the level of Left L3, L4, and L5 levels. At the end of the procedure, the skin was cleansed and bandages were applied. COMPLICATIONS: No acute complications. DISPOSITION / PLANS: The patient was placed in a supine position and transferred to the recovery area in a stable condition for observation and was discharged from the recovery room after meeting discharge criteria. Home discharge instructions given to the patient by the staff. The patient was reexamined prior to discharge. The patient will schedule a follow up in the clinic in 2-4 weeks.
[2023-01-28] MEDS ORDERED: IV FLUID CONTINUATION 1,000 ML IV ONE (07:34)
[2023-01-28 07:51] VITALS: BP 135/76; PULSE 63; RESP 15
--- NOTE | 2023-01-28 09:32 | FL ---
EXAMINATION TYPE: FL guided pain mgmt statistic DATE OF EXAM: 01/28/2023 HISTORY: Fluoroscopy time Total dose area product (DAP) mGy*cm? (or similar): 0.75823 IMPRESSION: 1. Fluoroscopy time.
== END 2023-01-28 08:11 | disposition home or self-care (01) ==
LOC: ORPAIN 06:11
PROVIDERS: ATTEND Specialist
DX: M51.36 Other intervertebral disc degeneration, lumbar region (principal); M47.816 Spondylosis without myelopathy or radiculopathy, lumbar region; I10 Essential (primary) hypertension; I25.10 Atherosclerotic heart disease of native coronary artery without angina pectoris; I48.91 Unspecified atrial fibrillation; E78.5 Hyperlipidemia, unspecified; J44.9 Chronic obstructive pulmonary disease, unspecified; G47.33 Obstructive sleep apnea (adult) (pediatric); E11.9 Type 2 diabetes mellitus without complications; N40.0 Benign prostatic hyperplasia without lower urinary tract symptoms; E03.9 Hypothyroidism, unspecified; M19.90 Unspecified osteoarthritis, unspecified site; Z99.89 Dependence on other enabling machines and devices; Z79.890 Hormone replacement therapy; Z79.899 Other long term (current) drug therapy; Z79.82 Long term (current) use of aspirin; Z98.890 Other specified postprocedural states; Z95.5 Presence of coronary angioplasty implant and graft
CPT/HCPCS: 64636 ×2; 64635; J2250; J1030; J3010; J2795

== ENCOUNTER → 2023-02-15 | Outpatient (CLI) | payer MEDICARE ==
--- NOTE | 2023-02-15 11:13 | XR ---
EXAMINATION TYPE: XR KUB DATE OF EXAM: 02/15/2023 COMPARISON: NONE HISTORY: Pain possible renal stone TECHNIQUE: One view abdominal series FINDINGS: The osseous structures are intact. The bowel gas pattern is nonspecific. Extensive retained fecal de bris correlate for constipation. Calcifications in the pelvis appear vascular. Hypertrophic and degen erative changes in the spine. Left kidney: Suspicion for a 3 mm mid to upper pole left renal calculus. Right kidney: 7 mm lower pole right renal calculus. IMPRESSION: 1. 7 mm lower pole right renal calculus. 2. Question 3 mm mid to upper pole medial left renal calculus.
== END | disposition home or self-care (01) ==
LOC: RADXRMAIN 09:54
PROVIDERS: ATTEND Urology
DX: N20.2 Calculus of kidney with calculus of ureter (principal)
CPT/HCPCS: 74018

== ENCOUNTER → 2023-02-17 | Outpatient (CLI) | payer MEDICARE ==
[2023-02-17 11:21] VITALS: BP 165/81; PULSE 78; RESP 18; TEMP 98.1
--- NOTE | 2023-02-17 12:40 | P.PAINPG ---
PQRS Measure Charge Sheet Comment: A 82 yr old male with a history of severe and chronic LBP secondary to lumbar DDD and spondylosis with facet arthropathy without myelopathy presents today for evaluation s/p BL RFA L4-L5, L5-S1. Pt states he experienced 55 % pain relief s/p procedure. Pain level is provoked at 8 /10 in intensity, constant, localized in the lumbar spine, stabbing in character w shooting towards the L hip and BL thighs. Pain is provoked by standing from a sitting position. Pain is alleviated with PT x 6 wks in Fall 2021, heat, ice, medications, home based stretching regimen, use of a Sciatica belt, repositioning and rest. Interventional pain procedures completed include BL RFA L3-L5 Patient is currently on Tyl Patient denies any side effects of the medication(s), denies excessive drowsiness or sleepiness, denies suicidal ideation and reports that the current pain medication is helping to control the pain and improve activities of daily living. Patient denies any motor or sensory deficits. Patient denies any fever or night sweats, denies any change in the bowel movements or urination. Physical Examination: -Constitutional: Cooperative. Not in acute distress . - Neurologic: Cranial nerve II to XII intact. No focal neurological deficits. - Psychatric: Alert & oriented x 3. Matching mood & appropriate affect. Judgment and insight intact. - Musculoskeletal: Cervical spine: Muscle bulk/ tone/ strength in the bilateral upper extremities normal Vertebral body tenderness to palpation over Spurling test positive Distraction test positive Facet loading test positive TTP Thoracic spine Muscle bulk / tone/ strength in the bilateral paraspinal muscles normal Vertebral body tender to palpation over Facet loading test positive TTP Lumbar spine: Motor bulk/ tone/ strength lower extremities , thigh and legs : 5/5 Deep tendon reflexes : Normal Knee Jerk. Normal Ankle Jerk . Vertebral body tenderness to palpation over L5 + Blackburn Test positive Lumbar Facet Loading Test positive Straight Leg Raise: positive at 30 degrees right side/ left side Gaenslen's Test positive Sacral spine : Severe tenderness over the Sacroiliac joint: right side / left side Range of motion: Flexion of the lumbar spine <60 degrees Range of motion: Extension of the lumbar spine <20 degrees Gaenslen's Test positive right side / left side Delfin test: positive right side / left side Thigh Thrust Test positive right side / left side Sacral Thrust Test positive right side / left side Assessment and plan: Chronic LBP secondary to lumbar DDD, spondylosis with facet arthropathy without myelopathy Recommendation of chiropractic treatments weekly x 6wks Dx: M51.36, G 89.4. Will manage residual pain at home and may return to the clinic on an as needed basis. All questions answered. I have spent less than 30 minutes on patient care today. Dr Ndiaye was available by phone for the evaluation of this patient. The time was used to review the medical records including relevant urine studies and Prescription history (MAPs), review of the available imaging, evaluation and examination of the patient, coordination of care with the medical staff and if applicable referring physicians, as well as creation of the medical record PQRS Narrative: Smoking Status Never smoker Hx Alcohol Use (MH) No Home Medications: Ambulatory Orders Cholecalciferol [Vitamin D3] 50 mcg PO DAILY 03/12/15 Fish Oil/Dha/Epa [Fish Oil 1,200 mg Fish Oil] 1,200 mg PO DAILY 03/12/15 Atorvastatin [Lipitor] 20 mg PO HS 01/18/17 Montelukast [Singulair] 10 mg PO HS 01/18/17 amLODIPine BESYLATE [Norvasc] 5 mg PO HS 01/18/17 carvediloL [Coreg] 3.125 mg PO BID 01/18/17 Levothyroxine Sodium [Synthroid] 100 mcg PO DAILY 05/06/19 Leuprolide Acetate [Eligard] 45 mg SQ Q180D 10/19/21 Naproxen 500 mg PO BID PRN 10/19/21 Aspirin [Adult Low Dose Aspirin EC] 81 mg PO DAILY 11/23/21 HYDROcodone/APAP 5-325MG [[place] 5] 1 each PO Q6HR PRN #12 tab 04/25/22 Repaglinide [Prandin] 2 mg PO BID 06/16/22 A Lipoic Acid/Biotin/Berberine [Alamax Protect Capsule] 1 tab PO DAILY 12/07/22 metFORMIN HCL [Glucophage] 500 mg PO BID 01/26/23 Controlled Substance Measures - Controlled Substance Measures Is patient prescribed a controlled substance at discharge?: No
== END ==
LOC: PNWHC3 09:43
PROVIDERS: ATTEND Specialist
DX: M51.36 Other intervertebral disc degeneration, lumbar region (principal); G89.4 Chronic pain syndrome; M47.816 Spondylosis without myelopathy or radiculopathy, lumbar region; Z79.82 Long term (current) use of aspirin; Z51.81 Encounter for therapeutic drug level monitoring
CPT/HCPCS: 99211

== ENCOUNTER → 2023-02-25 | Outpatient (CLI) | payer MEDICARE ==
--- NOTE | 2023-02-25 23:21 | CT ---
EXAMINATION TYPE: CT abdomen pelvis wo con DATE OF EXAM: 02/25/2023 COMPARISON: 10/08/2022 PET/CT INDICATION: Bilateral Calculi of kidneys. Mass on bladder. DLP: 560.4 mGycm, Automated exposure control for dose reduction was used. CONTRAST: 0 mL of Isovue 300. Study performed without Oral Contrast TECHNIQUE: Axial images were obtained from above the diaphragm to the pubic rami in the axial plane a t 5 mm thick sections. Reconstructed images are reviewed on the computer in the coronal plane. FINDINGS: Limited CT sections are obtained the lung bases. There is a calcification near the major fissure scarlett ng the left lower lung field measuring 0.4 cm. Series 3 image 14. A larger calcification measuring 0. 6 cm is more inferior. There is diffuse thickening of the posterior lateral left rib with a thicknes s of 2.6 cm. Sclerotic changes are noted within the rib with soft tissue thickening containing calcif ication. This is a new finding. Sclerosis along the thoracic spine and additional ribs appear progres sive CT ABDOMEN: Liver: 0.5 cm hypodensities in the superior posterior right lobe liver have been present previously b ut less well visualized. Small cyst is suspected. Other etiologies should be considered. Spleen: Normal Pancreas: Normal Adrenal glands: The adrenal glands are normal. Gallbladder: Normal Kidneys: No masses are evident. No hydronephrosis is present. There is a 2.0 cm cyst on the lateral right mid kidney. There is a punctate calcification in the superior lateral left kidney. At the inf erior pole there is a 0.2 cm anterior calcification. Within the right ureteropelvic junction is a 1.2 cm ureteral stone. No hydronephrosis is evident. Aorta: Vascular calcification is within the aorta. Inferior vena cava: Normal. CT PELVIS: Fecal debris is within the colon. Some fluid-filled small bowel loops are present. Appendix: Normal as visualized. Urinary bladder: There may be a couple of calcifications inferior left urinary bladder potentially ne w at the ureteral vesicle junction. Multiple phleboliths are within the pelvis. Urinary bladder may h as some asymmetric wall thickening greater on the left Genitourinary structures: Prostate is surgically absent. Osseous structures: Sclerotic areas are within the thoracic spine and upper lumbar spine as well as w ithin posterior ribs suspicious for metastatic disease. The rib expansion is highly suggestive for me tastatic process. Facet degenerative changes are within the lumbar spine. IMPRESSIONS: 1. Nonobstructing right ureteral pelvic junction stone. Nonobstructing punctate left renal stones ar e also noted. 2. Posterior left ninth rib expansion suspicious for metastasis. 3. Additional scattered sclerotic areas are within vertebral bodies as well as scattered ribs. 4. Asymmetric wall thickening along the left bladder wall may be present.
== END | disposition home or self-care (01) ==
LOC: RADCTMAIN 17:09
PROVIDERS: ATTEND Urology
DX: N20.2 Calculus of kidney with calculus of ureter (principal); N32.89 Other specified disorders of bladder
CPT/HCPCS: 74176

== ENCOUNTER 2023-05-01 09:15 | Emergency (ER) | payer MEDICARE ==
[2023-05-01 09:20] VITALS: RESP 18; TEMP 98
[2023-05-01] MEDS ORDERED: SODIUM CHLORIDE 0.9% 1,000 ML IV STA (09:34)
--- NOTE | 2023-05-01 09:44 | ED ---
Abdominal Pain HPI - General Chief Complaint: Abdominal Pain Stated Complaint: Abd Pain Time Seen by Provider: 05/01/23 09:24 Source: patient, RN notes reviewed Mode of arrival: ambulatory Limitations: no limitations - History of Present Illness Initial Comments: This an 83-year-old male presents emergency Department with chief complaint of left-sided abdominal pain. Patient states started yesterday into the night. Patient states that he took her [place] at home withher ribs symptoms but states now the pain is improving he does admit that he had a CT scan in January showing that he had a large right-sided kidney stone. Patient states she does have his tory of diverticulosis, history of prostate cancer surgery. Patient does have mild discomfort with urination denies reported fever denies any nausea vomiting patient states last 2 days she's noticed some mild diarrhea without melena or hematochezia. Denies chest pain shortness of breath. - Related Data Home Medications Medication Instructions Recorded Confirmed Cholecalciferol [Vitamin D3] 50 mcg PO DAILY 03/12/15 02/17/23 Fish Oil/Dha/Epa [Fish Oil 1,200 1,200 mg PO DAILY 03/12/15 02/17/23 mg Fish Oil] Atorvastatin [Lipitor] 20 mg PO HS 01/18/17 02/17/23 Montelukast [Singulair] 10 mg PO HS 01/18/17 02/17/23 amLODIPine BESYLATE [Norvasc] 5 mg PO HS 01/18/17 02/17/23 carvediloL [Coreg] 3.125 mg PO BID 01/18/17 02/17/23 Levothyroxine Sodium [Synthroid] 100 mcg PO DAILY 05/06/19 02/17/23 Leuprolide Acetate [Eligard] 45 mg SQ Q180D 10/19/21 02/17/23 Naproxen 500 mg PO BID PRN 10/19/21 02/17/23 Aspirin [Adult Low Dose Aspirin EC] 81 mg PO DAILY 11/23/21 02/17/23 Repaglinide [Prandin] 2 mg PO BID 06/16/22 02/17/23 A Lipoic Acid/Biotin/Berberine 1 tab PO DAILY 12/07/22 02/17/23 [Alamax Protect Capsule] metFORMIN HCL [Glucophage] 500 mg PO BID 01/26/23 02/17/23 Previous Rx's Medication Instructions Recorded HYDROcodone/APAP 5-325MG [[place] 5] 1 each PO Q6HR PRN #12 tab 04/25/22 Ketorolac [Toradol] 10 mg PO Q8HR #15 tab 05/01/23 Ondansetron Odt [Zofran Odt] 4 mg PO Q8HR PRN #10 tab 05/01/23 Allergies Allergy/AdvReac Type Severity Reaction Status Date / Time No Known Allergies Allergy Verified 05/01/23 09:20 Review of Systems ROS Statement: Those systems with pertinent positive or pertinent negative responses have been documented in the HPI. ROS Other: All systems not noted in ROS Statement are negative. Past Medical History Past Medical History: Atrial Fibrillation, Coronary Artery Disease (CAD), Cancer, COPD, Diabetes Mellitus, Hearing Disorder / Deafness, Hyperlipidemia, Hypertension, Musculoskeletal Disorder, Osteoarthritis (OA), Prostate Disorder, Sleep Apnea/CPAP/BIPAP, Thyroid Disorder Additional Past Medical History / Comment(s): Chronic lower back pain, lower back spinal stenosis with 3 bulging discs. 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 Hx skin cancer. 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 Uses C-PAP. Hx Gout. just finished clinical trial @[facility] for prostate cancer,takes 2am berberine plus otc to lower blood sugar History of Any Multi-Drug Resistant Organisms: None Reported Past Surgical History: Heart Catheterization With Stent, Hernia Repair, Orthopedic Surgery, Prostate Surgery Additional Past Surgical History / Comment(s): HEMMORHOIDECTOMY, UMBILICAL HERNIA REPAIR, TURP AND THEN RADICAL PROSTATECTOMY, right ankle surgery. Past Anesthesia/Blood Transfusion Reactions: No Reported Reaction Additional Past Anesthesia/Blood Transfusion Reaction / Comment(s): STATES BP SPIKED BUT HE WAS NOT ON BP MEDS AT THE TIME. Date of Last Stent Placement:: 06/09/2012 Past Psychological History: No Psychological Hx Reported Smoking Status: Never smoker Past Alcohol Use History: None Reported Past Drug Use History: None Reported - Past Family History Mother Family Medical History: No Reported History Father Family Medical History: Cancer Additional Family Medical History / Comment(s): Pancreatic cancer, at age 85. General Exam Limitations: no limitations General appearance: alert, in no apparent distress Head exam: Present: atraumatic, normocephalic, normal inspection Eye exam: Present: normal appearance, PERRL, EOMI. Absent: scleral icterus, conjunctival injection, periorbital swelling Respiratory exam: Present: normal lung sounds bilaterally. Absent: respiratory distress, wheezes, rales, rhonchi, stridor Cardiovascular Exam: Present: regular rate, normal rhythm, normal heart sounds. Absent: systolic murmur, diastolic murmur, rubs, gallop, clicks GI/Abdominal exam: Present: soft, tenderness (Mild left lower quadrant tenderness), normal bowel sounds. Absent: distended, guarding, rebound, rigid Back exam: Absent: CVA tenderness (R), CVA tenderness (L) Neurological exam: Present: alert Skin exam: Present: warm, dry, intact, normal color. Absent: rash Course Vital Signs 05/01/23 09:17 Temperature 98 F Pulse Rate 62 Respiratory 18 Rate Blood Pressure 128/72 O2 Sat by Pulse 98 Oximetry Medical Decision Making - Medical Decision Making Was pt. sent in by a medical professional or institution (, PA, ACUTE CARE NURSE, urgent care, hospital, or longterm...) When possible be specific @ -No Did you speak to anyone other than the patient for history (EMS, parent, family, police, friend...)? What history was obtained from this source @ -No Did you review nursing and triage notes (agree or disagree)? Why? @ -I reviewed and agree with nursing and triage notes Were old charts reviewed (outside hosp., previous admission, EMS record, old EKG, old radiological studies, urgent care reports/EKG's, longterm records)? Report findings @ -No old charts were reviewed Differential Diagnosis (chest pain, altered mental status, abdominal pain women, abdominal pain men, vaginal bleeding, weakness, fever, dyspnea, syncope, headache, dizziness, GI bleed, back pain, seizure, CVA, palpatations, mental he alth, musculoskeletal)? @ -Differential Abdominal Pain Men: Appendicitis, cholecystitis, diverticulosis, ischemic bowel, pancreatitis, hepatitis, UTI, gastroenteritis, AAA, incarcerated hernia, bowel obstruction, constipation, inflammatory bowel, hepatitis, peptic ulcer disease, splenic infarction, perforated viscus, testicular torsion, this is not meant to be an all-inclusive list EKG interpreted by me (3pts min.). @ -[None X-rays interpreted by me (1pt min.). @ -None done CT interpreted by me (1pt min.). @ -CT shows [id number] calculi 4 mm U/S interpreted by me (1pt. min.). @ -None done What testing was considered but not performed or refused? (CT, X-rays, U/S, labs)? Why? @ -None What meds were considered but not given or refused? Why? @ -None Did you discuss the management of the patient with other professionals (albina abdul i.e. , PA, ACUTE CARE NURSE, lab, RT, psych nurse, social media campaign manager, central office equipment installer, teacher, forest fire management officer, binder caser)? Give summary @ -No Was smoking cessation discussed for >3mins.? @ -No Was critical care preformed (if so, how long)? @ -No Were there social determinants of health that impacted care today? How? (Homelessness, low income, unemployed, alcoholism, drug addiction, transpor tation, low edu. Level, literacy, decrease access to med. care, correction, rehab)? @ -No Was there de-escalation of care discussed even if they declined (Discuss DNR or withdrawal of care, Hospice)? DNR status @ -No What co-morbidities impacted this encounter? (DM, HTN, Smoking, COPD, CAD, Cancer, CVA, ARF, Chemo, Hep., AIDS, mental health diagnosis, sleep apnea, morbid obesity)? @ -Prostate CA, hypertension hyperlipidemia Was patient admitted / discharged? Hospital course, mention meds given and route, prescriptions, significant lab abnormalities, going to OR and other pertinent info. @ -Discharge patient's pain is well-controlled this time patient has left. Ur eteral calculi Patient is discharged in stable condition return parameters were discussed. Patient does have follow-up with urology. Undiagnosed new problem with uncertain prognosis? @ -No Drug Therapy requiring intensive monitoring for toxicity (Heparin, Nitro, Insulin, Cardizem)? @ -No Were any procedures done? @ -No Diagnosis/symptom? @ -Ureteral calculi Acute, or Chronic, or Acute on Chronic? @ -Acute Uncomplicated (without systemic symptoms) or Complicated (systemic symptoms)? @ -Uncomplicated Side effects of treatment? @ -No Exacerbation, Progression, or Severe Exacerbation? @ -No Poses a threat to life or bodily function? How? (Chest pain, USA, ME, pneumonia, PE, COPD, DKA, ARF, appy, cholecystitis, CVA, Diverticulitis, Homicidal, Suicidal, threat to staff... and all critical care pts) @ -No - Lab Data Result diagrams: 05/01/23 09:48 05/01/23 09:48 Lab Results 05/01/23 05/01/23 05/01/23 Range/Units 09:48 09:48 09:48 WBC 7.5 (3.8-10.6) k/uL RBC 4.36 (4.30-5.90) m/uL Hgb 12.9 L (13.0-17.5) gm/dL Hct 38.2 L (39.0-53.0) % MCV 87.7 (80.0-100.0) fL MCH 29.6 (25.0-35.0) pg MCHC 33.8 (31.0-37.0) g/dL RDW 14.6 (11.5-15.5) % Plt Count 157 (150-450) k/uL MPV 9.5 Neutrophils % 77 % Lymphocytes % 11 % Monocytes % 7 % Eosinophils % 3 % Basophils % 1 % Neutrophils # 5.8 (1.3-7.7) k/uL Lymphocytes # 0.9 L (1.0-4.8) k/uL Monocytes # 0.5 (0-1.0) k/uL Eosinophils # 0.2 (0-0.7) k/uL Basophils # 0.0 (0-0.2) k/uL Sodium 133 L (137-145) mmol/L Potassium 4.9 (3.5-5.1) mmol/L Chloride 102 (98-107) mmol/L Carbon Dioxide 25 (22-30) mmol/L Anion Gap 6 mmol/L BUN 23 H (9-20) mg/dL Creatinine 1.10 (0.66-1.25) mg/dL Est GFR (CKD-EPI)AfAm 73 (>60 ml/min/1.73 sqM) Est GFR (CKD-EPI)NonAf 63 (>60 ml/min/1.73 sqM) Glucose 138 H (74-99) mg/dL Plasma Lactic Acid Ender (0.7-2.0) mmol/L Calcium 9.1 (8.4-10.2) mg/dL Total Bilirubin 0.6 (0.2-1.3) mg/dL AST 43 (17-59) U/L ALT 18 (4-49) U/L Alkaline Phosphatase 839 H (38-126) U/L Total Protein 7.0 (6.3-8.2) g/dL Albumin 4.2 (3.5-5.0) g/dL Lipase 82 (23-300) U/L Urine Color Yellow Urine Appearance Clear (Clear) Urine pH 6.5 (5.0-8.0) Ur Specific [place] >1.030 (1.001-1.035) Urine Protein 1+ (Negative) Urine Glucose (UA) Negative (Negative) Urine Ketones Negative (Negative) Urine Blood Small (Negative) Urine Nitrite Negative (Negative) Urine Bilirubin Negative (Negative) Urine Urobilinogen <2.0 (<2.0) mg/dL Ur Leukocyte Esterase Negative (Negative) Urine RBC 7 H (0-5) /hpf Urine WBC 1 (0-5) /hpf Urine Bacteria Few H (None) /hpf 05/01/23 Range/Units 09:48 WBC (3.8-10.6) k/uL RBC (4.30-5.90) m/uL Hgb (13.0-17.5) gm/dL Hct (39.0-53.0) % MCV (80.0-100.0) fL MCH (25.0-35.0) pg MCHC (31.0-37.0) g/dL RDW (11.5-15.5) % Plt Count (150-450) k/uL MPV Neutrophils % % Lymphocytes % % Monocytes % % Eosinophils % % Basophils % % Neutrophils # (1.3-7.7) k/uL Lymphocytes # (1.0-4.8) k/uL Monocytes # (0-1.0) k/uL Eosinophils # (0-0.7) k/uL Basophils # (0-0.2) k/uL Sodium (137-145) mmol/L Potassium (3.5-5.1) mmol/L Chloride (98-107) mmol/L Carbon Dioxide (22-30) mmol/L Anion Gap mmol/L BUN (9-20) mg/dL Creatinine (0.66-1.25) mg/dL Est GFR (CKD-EPI)AfAm (>60 ml/min/1.73 sqM) Est GFR (CKD-EPI)NonAf (>60 ml/min/1.73 sqM) Glucose (74-99) mg/dL Plasma Lactic Acid Ender 1.4 (0.7-2.0) mmol/L Calcium (8.4-10.2) mg/dL Total Bilirubin (0.2-1.3) mg/dL AST (17-59) U/L ALT (4-49) U/L Alkaline Phosphatase (38-126) U/L Total Protein (6.3-8.2) g/dL Albumin (3.5-5.0) g/dL Lipase (23-300) U/L Urine Color Urine Appearance (Clear) Urine pH (5.0-8.0) Ur Specific [place] (1.001-1.035) Urine Protein (Negative) Urine Glucose (UA) (Negative) Urine Ketones (Negative) Urine Blood (Negative) Urine Nitrite (Negative) Urine Bilirubin (Negative) Urine Urobilinogen (<2.0) mg/dL Ur Leukocyte Esterase (Negative) Urine RBC (0-5) /hpf Urine WBC (0-5) /hpf Urine Bacteria (None) /hpf Disposition Clinical Impression: Left ureteral calculus Disposition: HOME SELF-CARE Condition: Stable Instructions (If sedation given, give patient instructions): Kidney Stones (ED) Additional Instructions: Please return to the Emergency Department if symptoms worsen or any other concerns. Prescriptions: Ketorolac [Toradol] 10 mg PO Q8HR #15 tab Ondansetron Odt [Zofran Odt] 4 mg PO Q8HR PRN #10 tab PRN Reason: Nausea Is patient prescribed a controlled substance at d/c from ED?: No Referrals: Azael Mederos MD [Primary Care Provider] - 1-2 days Time of Disposition: 11:10
[2023-05-01 09:54] LABS: Basophils % (A) 1 %; Eosinophils # (A) 0.2 k/uL (0-0.7); Eosinophils % (A) 3 %; HCT 38.2 % (39.0-53.0); HGB 12.9 gm/dL (13.0-17.5); Lymphocytes # (A) 0.9 k/uL (1.0-4.8); Lymphocytes % (A) 11 %; MCH 29.6 pg (25.0-35.0); MCHC 33.8 g/dL (31.0-37.0); MCV 87.7 fL (80.0-100.0); Mean Platelet Volume 9.5; Monocytes # (A) 0.5 k/uL (0-1.0); Monocytes % (A) 7 %; Neutrophils # (A) 5.8 k/uL (1.3-7.7); Neutrophils % (A) 77 %; Platelet Count 157 k/uL (150-450); RBC 4.36 m/uL (4.30-5.90); RDW 14.6 % (11.5-15.5); WBC 7.5 k/uL (3.8-10.6)
[2023-05-01 10:09] LABS: ALT 18 U/L (4-49); AST 43 U/L (17-59); African American GFR (CKD) 73 (>60 ml/min/1.73 sqM); Albumin 4.2 g/dL (3.5-5.0); Alkaline Phosphatase 839 U/L (38-126); Anion Gap 6 mmol/L; Blood Urea Nitrogen 23 mg/dL (9-20); Calcium 9.1 mg/dL (8.4-10.2); Carbon Dioxide 25 mmol/L (22-30); Chloride 102 mmol/L (98-107); Glucose 138 mg/dL (74-99); Lipase 82 U/L (23-300); Non-African American GFR(CKD) 63 (>60 ml/min/1.73 sqM); Potassium 4.9 mmol/L (3.5-5.1); Sodium 133 mmol/L (137-145); Total Bilirubin 0.6 mg/dL (0.2-1.3)
[2023-05-01 11:04] LABS: Appearance,Urine Clear (Clear); Bilirubin,Urine Negative (Negative); Blood,Urine Small (Negative); Color,Urine Yellow; Glucose,Urine (UA) Negative (Negative); Ketones,Urine Negative (Negative); PH, Urine 6.5 (5.0-8.0); Protein,Urine 1+ (Negative); Specific Gravity,Urine >1.030 (1.001-1.035); Urobilinogen,Urine <2.0 mg/dL (<2.0)
--- NOTE | 2023-05-01 11:04 | CT ---
EXAMINATION TYPE: CT abdomen pelvis w con CT DLP: 1078.4 mGycm, Automated exposure control for dose reduction was used. DATE OF EXAM: 05/01/2023 10:52 AM COMPARISON: CT abdomen pelvis most recent from CLINICAL INDICATION:Male, 83 years old with history of llq pain; abd pain TECHNIQUE: Axial CT of the abdomen and pelvis. Sagittal and coronal reformats were created on a [employer] workstation. Contrast used:100 mL of Isovue 300 with IV Contrast, (none if empty) Oral contrast used: without Oral Contrast (none if empty) FINDINGS: LOWER CHEST: Calcified granuloma in the left lower lobe. Streaky atelectasis in the lung bases LIVER: Probable subcentimeter cyst in the hepatic dome. GALLBLADDER AND BILE DUCTS: Unremarkable. PANCREAS: Unremarkable. SPLEEN: Unremarkable. ADRENAL GLANDS: Unremarkable. KIDNEYS AND URETERS: Mild left hydroureteronephrosis secondary to shifting 4 mm calculus at the urete rovesicular junction. No obstructing right renal calculus measuring 8 mm. PELVIS BLADDER: Circumferential wall thickening measuring up to 8 mm of the urinary bladder. REPRODUCTIVE: The prostate gland appears surgically absent. ABDOMEN & PELVIS STOMACH AND BOWEL: No evidence of bowel obstruction. Scattered colonic diverticula. The appendix is n ormal. PERITONEUM/RETROPERITONEUM: No evidence of pneumoperitoneum or free fluid. VASCULATURE: No evidence of aortic aneurysm. MUSCULOSKELETAL: No acute osseous abnormalities LYMPH NODES: No gross evidence for lymphadenopathy. SOFT TISSUE/ABDOMINAL WALL: Bilateral fat-containing inguinal hernias. IMPRESSION: 1. Mild left hydroureteronephrosis secondary to shifting 4 mm calculus at the ureterovesicular junct ion. 2. Urinary bladder wall thickening correlate for cystitis. 3. Clonic diverticulosis.
[2023-05-01 11:05] LABS: Bacteria,Urine Few /hpf; Leukocyte Esterase,Urine Negative (Negative); Nitrite,Urine Negative (Negative); RBC,Urine 7 /hpf (0-5); WBC,Urine 1 /hpf (0-5)
[2023-05-01 11:39] VITALS: BP 119/68; PULSE 74
== END 2023-05-01 11:39 | disposition home or self-care (01) ==
LOC: EC 09:15
DX: N20.1 Calculus of ureter (principal); I10 Essential (primary) hypertension; I25.10 Atherosclerotic heart disease of native coronary artery without angina pectoris; I48.91 Unspecified atrial fibrillation; J44.9 Chronic obstructive pulmonary disease, unspecified; M19.90 Unspecified osteoarthritis, unspecified site; E78.5 Hyperlipidemia, unspecified; E11.9 Type 2 diabetes mellitus without complications; E07.9 Disorder of thyroid, unspecified; Z79.82 Long term (current) use of aspirin; Z79.84 Long term (current) use of oral hypoglycemic drugs; Z79.890 Hormone replacement therapy; Z79.899 Other long term (current) drug therapy
CPT/HCPCS: 36415; 80053; 83605; 83690; 85025; 81001; 74177; 99284; 96360; 96361; Q9967

== ENCOUNTER → 2023-05-02 | Outpatient (CLI) | payer MEDICARE ==
--- NOTE | 2023-05-02 17:51 | MR ---
EXAMINATION TYPE: MR brain wo/w con DATE OF EXAM: 05/02/2023 COMPARISON: Correlation PET/CT on 623 HISTORY: 83-year-old male C61, Hx Prostate cancer, Numb chin and pain in right jaw to ear TECHNIQUE: Multiplanar, multisequence images of the brain and brainstem were acquired before and aft er administration of 8 mL IV Gadavist. Diffusion weighted imaging is performed. FINDINGS: There is an extra-axial mass centered along the right frontal calvarium measuring up to 4.4 cm AP by 2.8 cm wide by 3.2 cm craniocaudal. There is homogeneous postcontrast enhancement. Some soft tissue o verlies the calvarium at this same level measuring up to 3 mm thick and there is expansion of the int racalvarial space. Localized mass effect onto the right frontal cerebral cortex but no midline shift or herniation. Some hemosiderin deposition along the posterior margin suggesting some previous international project engineer al bleeding. There is mild ventriculomegaly likely secondary to central cerebral atrophy Changes of FLAIR weighted sequences shows mild to moderate scattered bright white matter foci in the subcortical and deep white matter regions as well as the periatrial white matter regions of both cere bral hemispheres. No evidence for acute infarction or extra-axial fluid collection. Major intracranial flow voids are intact. Dominant left vertebral artery. Midline structures demonstrate normal morphology. The craniocervical junction is normal. Post contrast images demonstrate no other evidence of pathologic enhancement. Dural venous sinuses a re patent. Moderate mucosal thickening right maxillary sinus and bilateral ethmoid air cells. Rightward nasal se ptal deviation. Globes are intact. IMPRESSION: 1. Enhancing mass measuring 4.4 cm appears to be centered within the right frontal calvarium with ext raosseous soft tissue extension to a greater degree into the intracranial space. This has some locali zed mass effect onto the right frontal lobe but no midline shift or herniation. Differential consider ations include aggressive meningioma and prostate cancer metastasis that has developed extraosseous s oft tissue component. 2. Mild to moderate generalized atrophy and mild to moderate burden of chronic small vessel ischemic disease. No other enhancing intracranial lesions or other acute intracranial abnormality seen.
== END | disposition home or self-care (01) ==
LOC: RADMRIMAIN 16:02
PROVIDERS: ATTEND Internal Medicine Hematology & Oncology
DX: C61 Malignant neoplasm of prostate (principal); I67.82 Cerebral ischemia; G31.1 Senile degeneration of brain, not elsewhere classified
CPT/HCPCS: 70553; A9585

== ENCOUNTER → 2023-05-06 | Outpatient (CLI) | payer MEDICARE ==
--- NOTE | 2023-05-06 14:12 | NM ---
EXAMINATION TYPE: NM bone scan whole body DATE OF EXAM: 05/06/2023 COMPARISON: 09/08/2022 CLINICAL INDICATION: Male, 83 years old with history of C61 PROSTATE CA; Delayed whole-body scanning was performed following the injection of 19.5 mCi Tc 99m MDP. Images acq uired 3 hours post injection. FINDINGS: There is marked progression of diffuse abnormal uptake throughout virtually all of the visualized saul endicular and axial skeleton compatible with widespread osseous metastases. IMPRESSION: Marked progression of metastatic disease involving the skeletal structures.
== END | disposition home or self-care (01) ==
LOC: RADNMMAIN 09:52
PROVIDERS: ATTEND Internal Medicine Hematology & Oncology
DX: C79.51 Secondary malignant neoplasm of bone (principal); C61 Malignant neoplasm of prostate; E03.9 Hypothyroidism, unspecified; E78.5 Hyperlipidemia, unspecified; E11.9 Type 2 diabetes mellitus without complications; I10 Essential (primary) hypertension; Z71.3 Dietary counseling and surveillance
CPT/HCPCS: 78306; A9503

== ENCOUNTER → 2023-05-18 | Outpatient (CLI) | payer MEDICARE ==
--- NOTE | 2023-05-18 11:42 | XR ---
EXAMINATION TYPE: XR KUB DATE OF EXAM: 05/18/2023 COMPARISON: 02/15/2023 HISTORY: Kidney stone TECHNIQUE: One view abdominal series FINDINGS: The osseous structures are intact. The bowel gas pattern is nonspecific. Hypertrophic degenerative c hange of the spine. Bilateral hip arthropathy. Phleboliths in the pelvis. Calcification left upper qu adrant likely relate to splenic granuloma. Left kidney: No suspicious calcifications Right kidney: Stable 8 mm lower pole right renal calculus.. IMPRESSION: 1. Stable right lower pole 8 mm renal calculus.
== END | disposition home or self-care (01) ==
LOC: RADXRMAIN 11:16
PROVIDERS: ATTEND Urology
DX: N20.0 Calculus of kidney (principal)
CPT/HCPCS: 74018

== ENCOUNTER → 2023-06-09 | Outpatient (CLI) | payer MEDICARE ==
[2023-06-09 16:22] LABS: Blood Urea Nitrogen 15.2 mg/dL (9.0-27.0); Carbon Dioxide 25.1 mmol/L (21.6-31.8); Chloride 102 mmol/L (96-109); Potassium 4.7 mmol/L (3.5-5.5); Sodium 137 mmol/L (135-145)
[2023-06-09 16:25] LABS: HCT 30.9 % (39.6-50.0); HGB 9.7 d/dL (13.0-17.0); MCH 28.4 pg (27.0-32.0); MCHC 31.4 d/dL (32.0-37.0); MCV 90.4 FL (80.0-97.0); Mean Platelet Volume 10.7 FL (9.5-12.2); NRBC Per 100 WBC 0.04 X 10*3/uL (0.00-0.01); Platelet Count 292 X 10*3/uL (140-440); RBC 3.42 X 10*6/uL (4.40-5.60); RDW 18.4 % (11.5-14.5); WBC 3.98 X 10*3/uL (4.50-10.00)
[2023-06-09 17:03] LABS: Basophils # (M) 0 X 10*3/uL (0.00-0.10); Neutrophils % (M) 69 %
[2023-06-09 17:09] LABS: Eosinophils # (M) 0.08 X 10*3/uL (0.04-0.35); Hypochromasia (M) 2+; Lymphocytes # (M) 0.84 X 10*3/uL (0.90-5.00); Monocytes # (M) 0.16 X 10*3/uL (0.20-1.00); Nucleated Red Blood Cells 1 /100 WBCS
[2023-06-09 20:39] LABS: Appearance,Urine Clear (Clear); Bilirubin,Urine Negative (Negative); Blood,Urine Negative (Negative); Color,Urine Yellow (Yellow); Ketones,Urine Trace (Negative); Nitrite,Urine Negative (Negative); Specific Gravity,Urine 1.028 (1.001-1.030)
== END | disposition home or self-care (01) ==
LOC: LABPAT 11:50
PROVIDERS: ATTEND Urology
DX: Z01.812 Encounter for preprocedural laboratory examination (principal); N20.0 Calculus of kidney; R31.29 Other microscopic hematuria
CPT/HCPCS: 80051; 81001; 82565; 84520; 85025; 87086

== ENCOUNTER 2023-06-14 06:32 | Emergency (ER) | payer MEDICARE ==
[2023-06-14 06:51] VITALS: TEMP 97.8
--- NOTE | 2023-06-14 06:59 | ED ---
Abdominal Pain HPI - General Chief Complaint: Abdominal Pain Stated Complaint: Compacted Bowel Time Seen by Provider: 06/14/23 06:56 Source: patient, family, RN notes reviewed Mode of arrival: wheelchair Limitations: no limitations - History of Present Illness Initial Comments: 83-year-old male presents emergency Department with chief complaint of rommel molina. Patient states that he takes chronic pain meds states that he has issues with constipation once while. He states she's had a large amount abdominal discomfort because he is unable to go. He did try several [id number] medications. Patient denies any fevers chills no prior abdominal surgeries he states he does not feel like eating because of the discomfort. - Related Data Home Medications Medication Instructions Recorded Confirmed Cholecalciferol [Vitamin D3] 50 mcg PO DAILY 03/12/15 02/17/23 Fish Oil/Dha/Epa [Fish Oil 1,200 1,200 mg PO DAILY 03/12/15 02/17/23 mg Fish Oil] Atorvastatin [Lipitor] 20 mg PO HS 01/18/17 02/17/23 Montelukast [Singulair] 10 mg PO HS 01/18/17 02/17/23 amLODIPine BESYLATE [Norvasc] 5 mg PO HS 01/18/17 02/17/23 carvediloL [Coreg] 3.125 mg PO BID 01/18/17 02/17/23 Levothyroxine Sodium [Synthroid] 100 mcg PO DAILY 05/06/19 02/17/23 Leuprolide Acetate [Eligard] 45 mg SQ Q180D 10/19/21 02/17/23 Naproxen 500 mg PO BID PRN 10/19/21 02/17/23 Aspirin [Adult Low Dose Aspirin EC] 81 mg PO DAILY 11/23/21 02/17/23 Repaglinide [Prandin] 2 mg PO BID 06/16/22 02/17/23 A Lipoic Acid/Biotin/Berberine 1 tab PO DAILY 12/07/22 02/17/23 [Alamax Protect Capsule] metFORMIN HCL [Glucophage] 500 mg PO BID 01/26/23 02/17/23 Previous Rx's Medication Instructions Recorded HYDROcodone/APAP 5-325MG [[place] 5] 1 each PO Q6HR PRN #12 tab 04/25/22 Ketorolac [Toradol] 10 mg PO Q8HR #15 tab 05/01/23 Ondansetron Odt [Zofran Odt] 4 mg PO Q8HR PRN #10 tab 05/01/23 Allergies Allergy/AdvReac Type Severity Reaction Status Date / Time No Known Allergies Allergy Verified 06/14/23 06:51 Review of Systems ROS Statement: Those systems with pertinent positive or pertinent negative responses have been documented in the HPI. ROS Other: All systems not noted in ROS Statement are negative. Past Medical History Past Medical History: Atrial Fibrillation, Coronary Artery Disease (CAD), Cancer, COPD, Diabetes Mellitus, Hearing Disorder / Deafness, Hyperlipidemia, Hypertension, Musculoskeletal Disorder, Osteoarthritis (OA), Prostate Disorder, Sleep Apnea/CPAP/BIPAP, Thyroid Disorder Additional Past Medical History / Comment(s): Chronic lower back pain, lower back spinal stenosis with 3 bulging discs. 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 Hx skin cancer. 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 Uses C-PAP. Hx Gout. just finished clinical trial @[facility] for prostate cancer,takes 2am berberine plus otc to lower blood sugar History of Any Multi-Drug Resistant Organisms: None Reported Past Surgical History: Heart Catheterization With Stent, Hernia Repair, Orthopedic Surgery, Prostate Surgery Additional Past Surgical History / Comment(s): HEMMORHOIDECTOMY, UMBILICAL HERNIA REPAIR, TURP AND THEN RADICAL PROSTATECTOMY, right ankle surgery. Past Anesthesia/Blood Transfusion Reactions: No Reported Reaction Additional Past Anesthesia/Blood Transfusion Reaction / Comment(s): STATES BP SPIKED BUT HE WAS NOT ON BP MEDS AT THE TIME. Date of Last Stent Placement:: 06/09/2012 Past Psychological History: No Psychological Hx Reported Smoking Status: Never smoker Past Alcohol Use History: None Reported Past Drug Use History: None Reported - Past Family History Mother Family Medical History: No Reported History Father Family Medical History: Cancer Additional Family Medical History / Comment(s): Pancreatic cancer, at age 85. General Exam Limitations: no limitations General appearance: alert, in no apparent distress Head exam: Present: atraumatic, normocephalic, normal inspection Neck exam: Present: normal inspection, full ROM. Absent: tenderness, meningismus, lymphadenopathy Respiratory exam: Present: normal lung sounds bilaterally. Absent: respiratory distress, wheezes, rales, rhonchi, stridor Cardiovascular Exam: Present: regular rate, normal rhythm, normal heart sounds. Absent: systolic murmur, diastolic murmur, rubs, gallop, clicks GI/Abdominal exam: Present: soft, tenderness, normal bowel sounds. Absent: distended, guarding, rebound, rigid Course Vital Signs 06/14/23 06:49 Temperature 97.8 F Pulse Rate 79 Respiratory 18 Rate Blood Pressure 102/60 O2 Sat by Pulse 100 Oximetry Medical Decision Making - Medical Decision Making Was pt. sent in by a medical professional or institution (, PA, TRAUMA MANAGER, urgent care, hospital, or assisted...) When possible be specific @ -No Did you speak to anyone other than the patient for history (EMS, parent, family, police, friend...)? What history was obtained from this source @ -No Did you review nursing and triage notes (agree or disagree)? Why? @ -I reviewed and agree with nursing and triage notes Were old charts reviewed (outside hosp., previous admission, EMS record, old EKG, old radiological studies, urgent care reports/EKG's, assisted records)? Report findings @ -No old charts were reviewed Differential Diagnosis (chest pain, altered mental status, abdominal pain women, abdominal pain men, vaginal bleeding, weakness, fever, dyspnea, syncope, headache, dizziness, GI bleed, back pain, seizure, CVA, palpatations, mental health, musculoskeletal)? @ -nDifferential Abdominal Pain Men: Appendicitis, cholecystitis, diverticulosis, ischemic bowel, pancreatitis, hepatitis, UTI, gastroenteritis, AAA, incarcerated hernia, bowel obstruction, constipation, inflammatory bowel, hepatitis, peptic ulcer disease, splenic infarction, perforated viscus, testicular torsion, this is not meant to be an all-inclusive listle EKG interpreted by me (3pts min.). @ -None X-rays interpreted by me (1pt min.). @ -X-ray shows constipation, possible ileus. CT interpreted by me (1pt min.). @ -None done U/S interpreted by me (1pt. min.). @ -None done What testing was considered but not performed or refused? (CT, X-rays, U/S, labs)? Why? @ -None What meds were considered but not given or refused? Why? @ -None Did you discuss the management of the patient with other professionals ( professionals i.e. , PA, TRAUMA MANAGER, lab, RT, psych nurse, licensed social worker, relief mate, teacher, field artillery officer, hospice case manager)? Give summary @ -No Was smoking cessation discussed for >3mins.? @ -No Was critical care preformed (if so, how long)? @ -No Were there social determinants of health that impacted care today? How? (Homelessness, low income, unemployed, alcoholism, drug addiction, transpo rtation, low edu. Level, literacy, decrease access to med. care, longterm, rehab)? @ -No Was there de-escalation of care discussed even if they declined (Discuss DNR or withdrawal of care, Hospice)? DNR status @ -No What co-morbidities impacted this encounter? (DM, HTN, Smoking, COPD, CAD, Cancer, CVA, ARF, Chemo, Hep., AIDS, mental health diagnosis, sleep apnea, morbid obesity)? @ -None Was patient admitted / discharged? Hospital course, mention meds given and route, prescriptions, significant lab abnormalities, going to OR and other pertinent info. @ -Discharge patient felt improved after IV fluids, enema. Patient states his abdominal pain has resolved. Patient is discharged in stable condition return parameters were discussed. Undiagnosed new problem with uncertain prognosis? @ -No Drug Therapy requiring intensive monitoring for toxicity (Heparin, Nitro, Insulin, Cardizem)? @ -No Were any procedures done? @ -No Diagnosis/symptom? @ -Constipation Acute, or Chronic, or Acute on Chronic? @ -[Acute] Uncomplicated (without systemic symptoms) or Complicated (systemic symptoms)? @ -[Uncomplicated] Side effects of treatment? @ -[No] Exacerbation, Progression, or Severe Exacerbation? @ -[No] Poses a threat to life or bodily function? How? (Chest pain, USA, MD, pneumonia, PE, COPD, DKA, ARF, appy, cholecystitis, CVA, Diverticulitis, Homicidal, Suicidal, threat to staff... and all critical care pts) @ -[No] - Lab Data Result diagrams: 06/14/23 08:14 06/14/23 08:14 Lab Results 06/14/23 06/14/23 Range/Units 08:14 08:14 WBC 5.2 (3.8-10.6) k/uL RBC 3.43 L (4.30-5.90) m/uL Hgb 10.1 L (13.0-17.5) gm/dL Hct 30.2 L (39.0-53.0) % MCV 88.1 (80.0-100.0) fL MCH 29.5 (25.0-35.0) pg MCHC 33.5 (31.0-37.0) g/dL RDW 18.1 H (11.5-15.5) % Plt Count 223 (150-450) k/uL MPV 9.0 Neutrophils % 74 % Lymphocytes % 11 % Monocytes % 11 % Eosinophils % 1 % Basophils % 1 % Neutrophils # 3.9 (1.3-7.7) k/uL Lymphocytes # 0.6 L (1.0-4.8) k/uL Monocytes # 0.6 (0-1.0) k/uL Eosinophils # 0.0 (0-0.7) k/uL Basophils # 0.0 (0-0.2) k/uL Poikilocytosis Slight Anisocytosis Slight Sodium 132 L (137-145) mmol/L Potassium 4.8 (3.5-5.1) mmol/L Chloride 100 (98-107) mmol/L Carbon Dioxide 24 (22-30) mmol/L Anion Gap 8 mmol/L BUN 18 (9-20) mg/dL Creatinine 0.65 L (0.66-1.25) mg/dL Est GFR (CKD-EPI)AfAm >90 (>60 ml/min/1.73 sqM) Est GFR (CKD-EPI)NonAf >90 (>60 ml/min/1.73 sqM) Glucose 137 H (74-99) mg/dL Calcium 8.9 (8.4-10.2) mg/dL Total Bilirubin 0.9 (0.2-1.3) mg/dL AST 99 H (17-59) U/L ALT 16 (4-49) U/L Alkaline Phosphatase 901 H (38-126) U/L Total Protein 6.6 (6.3-8.2) g/dL Albumin 3.7 (3.5-5.0) g/dL Disposition Clinical Impression: Constipation Disposition: HOME SELF-CARE Condition: Stable Instructions (If sedation given, give patient instructions): Constipation (ED) Additional Instructions: Please return to the Emergency Department if symptoms worsen or any other concerns. Is patient prescribed a controlled substance at d/c from ED?: No Referrals: Azael Mederos MD [Primary Care Provider] - 1-2 days Time of Disposition: 09:58
[2023-06-14] MEDS ORDERED: SODIUM CHLORIDE 0.9% 1,000 ML IV ONE (08:00)
[2023-06-14 08:18] LABS: Anisocytosis Slight; Basophils % (A) 1 %; Eosinophils % (A) 1 %; HCT 30.2 % (39.0-53.0); HGB 10.1 gm/dL (13.0-17.5); Lymphocytes # (A) 0.6 k/uL (1.0-4.8); Lymphocytes % (A) 11 %; MCH 29.5 pg (25.0-35.0); MCHC 33.5 g/dL (31.0-37.0); MCV 88.1 fL (80.0-100.0); Monocytes # (A) 0.6 k/uL (0-1.0); Monocytes % (A) 11 %; Neutrophils # (A) 3.9 k/uL (1.3-7.7); Neutrophils % (A) 74 %; Platelet Count 223 k/uL (150-450); Poikilocytosis Slight; RBC 3.43 m/uL (4.30-5.90); RDW 18.1 % (11.5-15.5); WBC 5.2 k/uL (3.8-10.6)
[2023-06-14 09:19] LABS: ALT 16 U/L (4-49); AST 99 U/L (17-59); African American GFR (CKD) >90 (>60 ml/min/1.73 sqM); Albumin 3.7 g/dL (3.5-5.0); Anion Gap 8 mmol/L; Blood Urea Nitrogen 18 mg/dL (9-20); Calcium 8.9 mg/dL (8.4-10.2); Carbon Dioxide 24 mmol/L (22-30); Chloride 100 mmol/L (98-107); Glucose 137 mg/dL (74-99); Non-African American GFR(CKD) >90 (>60 ml/min/1.73 sqM); Potassium 4.8 mmol/L (3.5-5.1); Sodium 132 mmol/L (137-145); Total Bilirubin 0.9 mg/dL (0.2-1.3); Total Protein 6.6 g/dL (6.3-8.2)
--- NOTE | 2023-06-14 09:40 | XR ---
EXAMINATION TYPE: XR KUB DATE OF EXAM: 06/14/2023 COMPARISON: 05/18/2023 HISTORY: Pain TECHNIQUE: One view abdominal series FINDINGS: . Bowel gas pattern is nonspecific with scattered air-fluid levels. Hypertrophic and degenerative morales e of the spine. Arthropathy of the hips. Calcifications in the pelvis are likely vascular. Elevated l eft hemidiaphragm with basilar subsegmental consolidation nodules overlying the left lung base are li stephany related to granuloma. There is a right upper quadrant calcification measuring 5.9 mm. IMPRESSION: 1. Nonspecific gas pattern correlate for ileus or enteritis. Partial obstructive pattern not excluded . 2. Right upper quadrant calculus could represent a migrating right ureteral stone correlate clinicall y.
[2023-06-14 09:46] LABS: Alkaline Phosphatase 901 U/L (38-126)
[2023-06-14 10:20] VITALS: BP 110/62; PULSE 65; RESP 16
== END 2023-06-14 10:21 | disposition home or self-care (01) ==
LOC: EC 06:32
DX: K59.00 Constipation, unspecified (principal); I48.91 Unspecified atrial fibrillation; I25.10 Atherosclerotic heart disease of native coronary artery without angina pectoris; J44.9 Chronic obstructive pulmonary disease, unspecified; E11.9 Type 2 diabetes mellitus without complications; E78.5 Hyperlipidemia, unspecified; I10 Essential (primary) hypertension; M19.90 Unspecified osteoarthritis, unspecified site; E07.9 Disorder of thyroid, unspecified; Z79.890 Hormone replacement therapy; Z79.84 Long term (current) use of oral hypoglycemic drugs; Z79.1 Long term (current) use of non-steroidal anti-inflammatories (NSAID); Z79.899 Other long term (current) drug therapy; Z79.82 Long term (current) use of aspirin
CPT/HCPCS: 36415; 74018; 80053; 85025; 96360; 99284

== ENCOUNTER → 2023-06-20 | Day surgery (SDC) | payer MEDICARE ==
--- NOTE | 2023-06-14 11:37 | P.GSHP ---
History of Present Illness H&P Date: 06/14/23 83 yo male who rcently passed a ureteral stone. He has an 8 mm right lower pole stone. He comes eswl rt Alternative treatments have been discussed. - Constitutional Constitutional: Denies chills, Denies fever - EENT Eyes: denies blurred vision, denies pain Ears, nose, mouth and throat: Denies headache, Denies sore throat - Cardiovascular Cardiovascular: Denies chest pain, Denies shortness of breath - Respiratory Respiratory: Denies cough, Denies 7 - Gastrointestinal Gastrointestinal: Denies abdominal pain, Denies diarrhea, Denies nausea, Denies vomiting - Genitourinary (Female) Genitourinary: Denies dysuria, Denies hematuria - Genitourinary (Male) Genitourinary: Denies dysuria, Denies hematuria - Musculoskeletal Musculoskeletal: Denies myalgias - Integumentary Integumentary: Denies pruritus, Denies rash - Neurological Neurological: Denies numbness, Denies weakness - Psychiatric Psychiatric: Denies anxiety, Denies depression - Endocrine Endocrine: Denies fatigue, Denies weight change Past Medical History Past Medical History: Atrial Fibrillation, Coronary Artery Disease (CAD), Cancer, COPD, Diabetes Mellitus, Hearing Disorder / Deafness, Hyperlipidemia, Hypertension, Musculoskeletal Disorder, Osteoarthritis (OA), Prostate Disorder, Sleep Apnea/CPAP/BIPAP, Thyroid Disorder Additional Past Medical History / Comment(s): Chronic lower back pain, lower back spinal stenosis with 3 bulging discs. 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 Hx skin cancer. 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 Uses C-PAP. Hx Gout. just finished clinical trial @[facility] for prostate cancer,takes 2am berberine plus otc to lower blood sugar History of Any Multi-Drug Resistant Organisms: None Reported Past Surgical History: Heart Catheterization With Stent, Hernia Repair, Orthopedic Surgery, Prostate Surgery Additional Past Surgical History / Comment(s): HEMMORHOIDECTOMY, UMBILICAL HERNIA REPAIR, TURP AND THEN RADICAL PROSTATECTOMY, right ankle surgery. Past Anesthesia/Blood Transfusion Reactions: No Reported Reaction Additional Past Anesthesia/Blood Transfusion Reaction / Comment(s): STATES BP SPIKED BUT HE WAS NOT ON BP MEDS AT THE TIME. Date of Last Stent Placement:: 06/09/2012 Past Psychological History: No Psychological Hx Reported Smoking Status: Never smoker Past Alcohol Use History: None Reported Past Drug Use History: None Reported - Past Family History Mother Family Medical History: No Reported History Father Family Medical History: Cancer Additional Family Medical History / Comment(s): Pancreatic cancer, at age 85. Medications and Allergies Home Medications Medication Instructions Recorded Confirmed Type Cholecalciferol [Vitamin D3] 50 mcg PO DAILY 03/12/15 02/17/23 History Fish Oil/Dha/Epa [Fish Oil 1,200 1,200 mg PO DAILY 03/12/15 02/17/23 History mg Fish Oil] Atorvastatin [Lipitor] 20 mg PO HS 01/18/17 02/17/23 History Montelukast [Singulair] 10 mg PO HS 01/18/17 02/17/23 History amLODIPine BESYLATE [Norvasc] 5 mg PO HS 01/18/17 02/17/23 History carvediloL [Coreg] 3.125 mg PO BID 01/18/17 02/17/23 History Levothyroxine Sodium [Synthroid] 100 mcg PO DAILY 05/06/19 02/17/23 History Leuprolide Acetate [Eligard] 45 mg SQ Q180D 10/19/21 02/17/23 History Naproxen 500 mg PO BID PRN 10/19/21 02/17/23 History Aspirin [Adult Low Dose Aspirin EC] 81 mg PO DAILY 11/23/21 02/17/23 History HYDROcodone/APAP 5-325MG [[place] 5] 1 each PO Q6HR PRN #12 tab 04/25/22 02/17/23 Rx Repaglinide [Prandin] 2 mg PO BID 06/16/22 02/17/23 History A Lipoic Acid/Biotin/Berberine 1 tab PO DAILY 12/07/22 02/17/23 History [Alamax Protect Capsule] metFORMIN HCL [Glucophage] 500 mg PO BID 01/26/23 02/17/23 History Ketorolac [Toradol] 10 mg PO Q8HR #15 tab 05/01/23 Rx Ondansetron Odt [Zofran Odt] 4 mg PO Q8HR PRN #10 tab 05/01/23 Rx Allergies Allergy/AdvReac Type Severity Reaction Status Date / Time No Known Allergies Allergy Verified 06/14/23 06:51 Surgical - Exam - General well developed, well nourished, no distress - Eyes normal ocular movement, no icteric - ENT no hearing loss, no congestion - Neck no masses, trachea midline - Respiratory normal respiratory effort, clear to auscultation - Abdomen Abdomen: soft, non tender, no guarding, no rigid, no rebound - Integumentary no rash, no abnormal pigmentation - Neurologic no disoriented, no combative - Psychiatric oriented to time, oriented to person, oriented to place, speech is normal, memory intact Results - Imaging Abdominal x-ray: report reviewed, image reviewed CT scan - abdomen: report reviewed, image reviewed CT scan - pelvis: report reviewed, image reviewed Assessment and Plan Assessment: Impression: right renal stone Plan: eswl right
[~2023-06-20] MED LIST changes: +HYDROmorphone 0.5 MG/0.5 ML SYRINGE IVP PRN; +MIDAZOLAM 2 MG/2 ML VIAL ONE; +PROPOFOL 10 MG/ML 20 ML VIAL IV ONE; +fentaNYL (PF) 50 MCG/ML 2 ML AMP ONE
[2023-06-20 07:19] LABS: Glucose,Whole Blood 134 mg/dL (70-110)
[2023-06-20 07:25] VITALS: TEMP 97.6
--- NOTE | 2023-06-20 07:26 | XR ---
EXAMINATION TYPE: XR KUB DATE OF EXAM: 06/20/2023 6:17 AM CLINICAL INDICATION:Male, 83 years old with history of kidney stones; COMPARISON: 06/14/2023. TECHNIQUE: One radiographic view of the abdomen was obtained. FINDINGS: The bowel gas pattern is nonspecific without dilated loops of small or large bowel. There i s no evidence for organomegaly or pneumoperitoneum. The osseous structures are intact. Fecal materi al and gas are demonstrated throughout the colon and rectum. Multilevel degeneration changes through out the spine. There probably. This are present. Pelvic phleboliths are present.. Right renal pelvis 9 mm calcification is present. No left renal calculi visualized. IMPRESSION: Right renal sinus calculus measuring 9 mm. MRI
--- NOTE | 2023-06-20 08:06 | P.OP ---
Date of Procedure: 06/20/23 Preoperative Diagnosis: right renal stone Postoperative Diagnosis: Same Procedure(s) Performed: extra corporeal shockwave lithotripsy, 2500 shocks at energy level 4 Anesthesia: MAC Surgeon: Tulio Montaño Pathology: none sent Condition: stable Disposition: PACU Indications for Procedure: The patient is 83. He has an 8 mm right lower pole stone. He comes for shockwave lithotripsy Description of Procedure: Patient brought to the operating suite. He's placed on the lithotripsy table. The right renal stone was seen in 2 views of fluoroscopy. With the compact dornier 2 lithotripter 2500 shocks at energy level 4 are administered. The stone fractures nicely. At the end of the procedure the patient was awakened and returned recovery room in good condition. He'll be discharged home upon recovery and found the office in one week
[2023-06-20 08:26] LABS: Glucose,Whole Blood 123 mg/dL (70-110)
[2023-06-20 08:32] VITALS: BP 136/70; PULSE 68; RESP 16
== END | disposition home or self-care (01) ==
LOC: ORWHC2ENDO 05:59
PROVIDERS: ATTEND Urology
DX: N20.0 Calculus of kidney (principal); I48.91 Unspecified atrial fibrillation; I25.10 Atherosclerotic heart disease of native coronary artery without angina pectoris; J44.9 Chronic obstructive pulmonary disease, unspecified; E11.9 Type 2 diabetes mellitus without complications; E78.5 Hyperlipidemia, unspecified; E07.9 Disorder of thyroid, unspecified; Z85.46 Personal history of malignant neoplasm of prostate; Z90.79 Acquired absence of other genital organ(s); Z79.899 Other long term (current) drug therapy; Z79.82 Long term (current) use of aspirin
CPT/HCPCS: 74018; 50590; J2250; J3010; J2704

== ENCOUNTER 2023-08-20 11:54 | Emergency (ER) | payer MEDICARE ==
[2023-08-20 12:10] VITALS: TEMP 97.7
--- NOTE | 2023-08-20 13:27 | ED ---
Fall HPI - General Chief Complaint: Fall Stated Complaint: fall/shoulder injury Time Seen by Provider: 08/20/23 12:18 Source: patient, RN notes reviewed, old records reviewed Mode of arrival: wheelchair Limitations: no limitations - History of Present Illness Initial Comments: This is a 83-year-old male to the emergency department for evaluation today. Patient presents today for evaluation of fall. This patient has a fall standing is a car was pulling away lost his balance landing on his left shoulder. Patient has severe pain in that left shoulder no other injury noted, did not his head no loss of consciousness denies any back pain or leg pain. Patient was able to amply is brought to the ER under his own power as EMS was initially called the family brings patient to the emergency room today. Patient states he is on hospice secondary to prostate cancer MD Complaint: fall -: days(s) Fall From: standing, wheelchair Fall Witnessed: yes, by family Place Fall Occurred: home Loss of Consciousness: none Prolonged Down Time?: no Symptoms Prior to Fall: none Location - Extremities: Left: Shoulder Severity: severe Severity scale (1-10): 10 Quality: sharp Context: tripped/slipped Associated Symptoms: denies - Related Data Home Medications Medication Instructions Recorded Confirmed Cholecalciferol [Vitamin D3] 50 mcg PO DAILY 03/12/15 06/20/23 Fish Oil/Dha/Epa [Fish Oil 1,200 1,200 mg PO DAILY 03/12/15 06/20/23 mg Fish Oil] Atorvastatin [Lipitor] 20 mg PO HS 01/18/17 06/20/23 Montelukast [Singulair] 10 mg PO HS 01/18/17 06/20/23 amLODIPine BESYLATE [Norvasc] 5 mg PO HS 01/18/17 06/20/23 carvediloL [Coreg] 3.125 mg PO BID 01/18/17 06/20/23 Levothyroxine Sodium [Synthroid] 100 mcg PO DAILY 05/06/19 06/20/23 Leuprolide Acetate [Eligard] 45 mg SQ Q180D 10/19/21 06/20/23 Aspirin [Adult Low Dose Aspirin EC] 81 mg PO DAILY 11/23/21 06/20/23 Repaglinide [Prandin] 2 mg PO BID 06/16/22 06/20/23 metFORMIN HCL [Glucophage] 500 mg PO BID 01/26/23 06/20/23 Allergies Allergy/AdvReac Type Severity Reaction Status Date / Time No Known Allergies Allergy Verified 08/20/23 12:05 Review of Systems ROS Statement: Those systems with pertinent positive or pertinent negative responses have been documented in the HPI. ROS Other: All systems not noted in ROS Statement are negative. Past Medical History Past Medical History: Atrial Fibrillation, Coronary Artery Disease (CAD), Cancer, COPD, Diabetes Mellitus, Hearing Disorder / Deafness, Hyperlipidemia, Hypertension, Musculoskeletal Disorder, Osteoarthritis (OA), Prostate Disorder, Sleep Apnea/CPAP/BIPAP, Thyroid Disorder Additional Past Medical History / Comment(s): Chronic lower back pain, lower back spinal stenosis with 3 bulging discs. 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 Hx skin cancer. 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 Uses C-PAP. Hx Gout. just finished clinical trial @[facility] for prostate cancer,takes 2am berberine plus otc to lower blood sugar History of Any Multi-Drug Resistant Organisms: None Reported Past Surgical History: Heart Catheterization With Stent, Hernia Repair, Orthopedic Surgery, Prostate Surgery Additional Past Surgical History / Comment(s): HEMMORHOIDECTOMY, UMBILICAL HERNIA REPAIR, TURP AND THEN RADICAL PROSTATECTOMY, right ankle surgery. Past Anesthesia/Blood Transfusion Reactions: No Reported Reaction Additional Past Anesthesia/Blood Transfusion Reaction / Comment(s): STATES BP SPIKED BUT HE WAS NOT ON BP MEDS AT THE TIME. Date of Last Stent Placement:: 06/09/2012 Past Psychological History: No Psychological Hx Reported Smoking Status: Never smoker Past Alcohol Use History: None Reported Past Drug Use History: None Reported - Past Family History Mother Family Medical History: No Reported History Father Family Medical History: Cancer Additional Family Medical History / Comment(s): Pancreatic cancer, at age 85. General Exam Limitations: no limitations General appearance: alert, in no apparent distress, anxious Head exam: Present: atraumatic, normocephalic, normal inspection Eye exam: Present: normal appearance, PERRL, EOMI. Absent: scleral icterus, conjunctival injection, periorbital swelling ENT exam: Present: normal exam, mucous membranes moist Neck exam: Present: normal inspection. Absent: tenderness, meningismus, lymphadenopathy Respiratory exam: Present: normal lung sounds bilaterally. Absent: respiratory distress, wheezes, rales, rhonchi, stridor Cardiovascular Exam: Present: regular rate, normal rhythm, normal heart sounds. Absent: systolic murmur, diastolic murmur, rubs, gallop, clicks GI/Abdominal exam: Present: soft, normal bowel sounds. Absent: distended, tenderness, guarding, rebound, rigid Extremities exam: Present: tenderness, normal capillary refill. Absent: full ROM (Left shoulder immobile with pain), pedal edema, joint swelling, calf ten derness Back exam: Present: normal inspection Neurological exam: Present: alert, oriented X3, CN II-XII intact Psychiatric exam: Present: normal affect, normal mood Skin exam: Present: warm, dry, intact, normal color. Absent: rash Course Vital Signs 08/20/23 08/20/23 12:02 13:23 Temperature 97.7 F Pulse Rate 67 70 Respiratory 18 16 Rate Blood Pressure 154/75 141/76 O2 Sat by Pulse 98 99 Oximetry - Reevaluation(s) Reevaluation #1: 08/20/23 13:36 Medical records reviewed Reevaluation #2: 08/20/23 13:37 Patient informed results questions answered Reevaluation #3: 08/20/23 13:37 Patient's pain is controlled Reevaluation #4: 08/20/23 13:27 Was pt. sent in by a medical professional or institution (, PA, PRODUCT SALES REPRESENTATIVE, urgent care, hospital, or [place] [facility] facility...) When possible be specific @ -no Did you speak to anyone other than the patient for history (EMS, parent, family, police, friend...)? What history was obtained from this source @ -no Did you review nursing and triage notes (agree or disagree)? Why? @ -agree Are old charts reviewed (outside hosp., previous admission, EMS record, old EKG, old radiological studies, urgent care reports/EKG's, [place] [facility] facility records)? Report findings @ -yes Differential Diagnosis (chest pain, altered mental status, abdominal pain women, abdominal pain men, vaginal bleeding, weakness, fever, dyspnea, syncope, headache, dizziness, GI bleed, back pain, seizure, CVA, palpatations, mental health, musculoskeletal)? @ -prior EKG interpreted by me (3pts min.). @ -no X-rays interpreted by me (1pt min.). @ -yes CT interpreted by me (1pt min.). @ -no U/S interpreted by me (1pt. min.). @ -no What testing was considered but not performed or refused? (CT, X-rays, U/S, labs)? Why? @ -none What meds were considered but not given or refused? Why? @ -none Did you discuss the management of the patient with other professionals (professionals i.e. DrSondra, PA, PRODUCT SALES REPRESENTATIVE, lab, RT, psych nurse, manager social services, ferry operator, teacher, audit officer, briefcase sewer)? Give summary @ -no Was smoking cessation discussed for >3mins.? @ -no Was critical care preformed (if so, how long)? @ -no Were there social determinants of health that impacted care today? How? (Homelessness, low income, unemployed, alcoholism, drug addiction, transportation, low edu. Level, literacy, decrease access to med. care, nursing home, rehab)? @ -none Was there de-escalation of care discussed even if they declined (Discuss DNR or withdrawal of care, Hospice)? DNR status @ -no What co-morbidities impacted this encounter? (DM, HTN, Smoking, COPD, CAD, Cancer, CVA, ARF, Chemo, Hep., AIDS, mental health diagnosis, sleep apnea, morbid obesity)? @ -none Was patient admitted / discharged? Hospital course, mention meds given and route, prescriptions, significant lab abnormalities, going to OR and other pertinent info. @ - 83 male to the emergency department today for evaluation of fall resulting in left shoulder pain, patient does have left humerus fracture, placed in sling and he will be discharged home Discharge Undiagnosed new problem with uncertain prognosis? @ -no Drug Therapy requiring intensive monitoring for toxicity (Heparin, Nitro, Insulin, Cardizem)? @ -no Were any procedures done? @ -no Diagnosis/symptom? @ -Left shoulder, left humerus fracture, fall Acute, or Chronic, or Acute on Chronic? @ -Acute Uncomplicated (without systemic symptoms) or Complicated (systemic symptoms)? @ -Complicated Side effects of treatment? @ -no Exacerbation, Progression, or Severe Exacerbation? @ -exacerbation Poses a threat to life or bodily function? How? (Chest pain, [place], [place], pneumonia, PE, COPD, DKA, ARF, appy, cholecystitis, CVA, Diverticulitis, Homicidal, Suicidal, threat to staff... and all critical care pts) @ -yes Procedures - Orthopedic Splinting/Casting Injury #1 Side: left Upper Extremity Injury Location: shoulder Upper Extremity Immobilizer: sling/shoulder immobilizer Medical Decision Making - Medical Decision Making 83 male to the emergency department today for evaluation of fall resulting in left shoulder pain, patient does have left humerus fracture, placed in sling and he will be discharged home - Radiology Data Radiology results: report reviewed (X-ray left shoulder and chest is positive for left shoulder fracture), image reviewed Disposition Clinical Impression: Fall, Left humeral fracture Disposition: HOME SELF-CARE Instructions (If sedation given, give patient instructions): Arm Fracture in Adults (ED) Is patient prescribed a controlled substance at d/c from ED?: No Referrals: Azael Mederos MD [Primary Care Provider] - 1-2 days
--- NOTE | 2023-08-20 13:29 | XR ---
EXAMINATION TYPE: XR chest 1V DATE OF EXAM: 08/20/2023 COMPARISON: 05/22/2012 HISTORY: 83-year-old male pain after falling TECHNIQUE: Single frontal view of the chest is obtained. FINDINGS: Low lung volumes and crowded vascular markings. Patchy bibasilar opacities some of which may represen t atelectasis. There is focal patchy right mid and lower lung opacity and small right effusion. There is a displaced surgical neck fracture of the proximal left humerus. Healed fracture deformity left m id clavicular shaft. IMPRESSION: 1. Hypoventilatory changes. Small right pleural effusion. Focal right mid and lower lung opacities co uld represent atelectasis or pulmonary contusion. Lesser degree of opacity at the left base. 2. Displaced surgical neck fracture proximal left humerus.
--- NOTE | 2023-08-20 13:31 | XR ---
EXAMINATION TYPE: XR shoulder complete 3 views LT DATE OF EXAM: 08/20/2023 Comparison: None Clinical History: 83-year-old male with pain after fall Findings: There is a anteriorly displaced transverse surgical neck fracture proximal left humerus. Fracture mar gins are slightly indistinct and there is minimal periosteal callus noted. Prominent callus along the midclavicular shaft suggests prior healed fracture deformity. Impression: 1. Findings suggest a subacute surgical neck fracture proximal left humerus displaced anteriorly. Cor relate as to time since injury. 2. Large hypertrophic callus relating to old mid left clavicular shaft fracture.
[2023-08-20 13:45] VITALS: BP 141/76; PULSE 70; RESP 16
== END 2023-08-20 14:25 | disposition home or self-care (01) ==
LOC: EC 11:54
DX: S42.202A Unspecified fracture of upper end of left humerus, initial encounter for closed fracture (principal); E11.9 Type 2 diabetes mellitus without complications; E78.5 Hyperlipidemia, unspecified; I10 Essential (primary) hypertension; I25.10 Atherosclerotic heart disease of native coronary artery without angina pectoris; I48.91 Unspecified atrial fibrillation; J44.9 Chronic obstructive pulmonary disease, unspecified; E07.9 Disorder of thyroid, unspecified; G47.30 Sleep apnea, unspecified; Z79.82 Long term (current) use of aspirin; Z79.890 Hormone replacement therapy; Z79.899 Other long term (current) drug therapy; W01.0XXA Fall on same level from slipping, tripping and stumbling without subsequent striking against object, initial encounter
CPT/HCPCS: 71045; 99284